=== PATIENT | male | born 1955 | race Caucasian/White ===

== ENCOUNTER 2017-04-20 09:12 | Emergency (ER) | payer BC, OTHER ==
[~2017-04-20] VITALS: Ht 177.8 cm; Wt 70.5 kg
[~2017-04-20 09:12] MED LIST: ABILIFY 10MG TA10 MG PO; ACIPHEX20 MG PO; AZITHROMYCIN500 MG PO; COZAAR 50MG50 MG/TAB PO; LIPITOR20 MG PO; PERCOCET 5/321 UDTAB PO; ULTRAM 50MG TAB50 MG PO; [UNRECOGNIZED DRUG - REMARK]
[2017-04-20 09:19] VITALS: BP 122/69; PULSE 55; TEMP 97.4
[2017-04-20 10:40] LABS: PROTHROMBIN TIME 11.1 SECONDS (9.7-12.8)
[2017-04-20 10:43] LABS: PARTIAL THROMBOPLASTIN TIME 35.2 SECONDS (26.0-37.0)
[2017-04-20 10:44] LABS: ADJUSTED CALCIUM 9.5 mg/dL (8.4-10.2); ALANINE AMINOTRANSFERASE 30 U/L (21-72); ALBUMIN 4.2 gm/dL (3.5-5.0); ALKALINE PHOSPHATASE 91 U/L (50-136); ANION GAP 10 mmol/L (7-16); BLOOD UREA NITROGEN 17 mg/dL (9-20); CALCIUM 9.7 mg/dL (8.4-10.2); CARBON DIOXIDE 28 mmol/L (22-30); CHLORIDE 103 mmol/L (98-107); CREATININE, serum 0.84 mg/dL (0.66-1.25); GLUCOSE 108 mg/dL (74-106); POTASSIUM 3.6 mmol/L (3.4-5.0); SODIUM 140 mmol/L (137-145); TOTAL PROTEIN 7.3 gm/dL (6.4-8.2)
[2017-04-20 10:59] LABS: TROPONIN-I < 0.012 ng/mL (0.000-0.034)
[2017-04-20 11:52] LABS: BASO # 0.1 (0.0-0.2); BASO % 0.5 % (0.0-2.0); EOS # 0.3 (0.0-0.7); EOS % 2.7 % (0-4.0); GRAN # 7.3 (1.4-6.5); HEMATOCRIT 48.3 % (42.0-52.0); HEMOGLOBIN 16.7 g/dl (13.5-18.0); LYMPH # 1.8 (1.2-3.4); LYMPH % 17.5 % (20.0-51.0); MEAN CELL VOLUME 90 fl (80.0-100.0); MEAN CORPUSCULAR HEMOGLOBIN 31 pg (27.0-31.0); MEAN CORPUSCULAR HGB CONC 35 g/dl (33.0-37.0); MEAN PLATELET VOLUME 9.3 fl (7.4-10.4); MONO # 0.7 (0.1-0.6); MONO % 6.9 % (1.7-9.3); PLATELET COUNT 349 K/mm3 (130-400); RED BLOOD COUNT 5.38 M/mm3 (4.20-5.60); REDCELL DISTRIBUTION WIDTH-CV 12.7 % (11.5-14.5); WHITE BLOOD COUNT 10.1 K/mm3 (4.8-10.8)
[2017-04-20] MEDS ORDERED: ULTRAM 50MG TAB50 MG PO (12:20)
== END 2017-04-20 13:30 | disposition home or self-care (01) ==
LOC: COL.ER 09:12
PROVIDERS: Emergency Medicine
DX: S22.20XA Unspecified fracture of sternum, initial encounter for closed fracture (principal); R55 Syncope and collapse; K21.9 Gastro-esophageal reflux disease without esophagitis; I10 Essential (primary) hypertension; F17.210 Nicotine dependence, cigarettes, uncomplicated; W18.39XA Other fall on same level, initial encounter
CPT/HCPCS: J2765; J7030

== ENCOUNTER → 2018-09-08 | Outpatient (CLI) | payer BC | LOC: COL.RAD 11:59 | DX: S09.90XA Unspecified injury of head, initial encounter (principal) ==

== ENCOUNTER → 2018-09-25 | Outpatient (CLI) | payer BC, OTHER | LOC: MHCPAIN 13:52 | DX: G89.29 Other chronic pain (principal); M79.2 Neuralgia and neuritis, unspecified | CPT/HCPCS: G0463 ==

== ENCOUNTER → 2018-10-02 | Outpatient (CLI) | payer BC, OTHER | LOC: MHCPAIN 09:45 | DX: G57.81 Other specified mononeuropathies of right lower limb (principal) | CPT/HCPCS: J1040 ==

== ENCOUNTER 2018-11-18 10:18 | Emergency (ER) | payer BC, OTHER ==
[~2018-11-18] VITALS: Ht 170.2 cm; Wt 63.6 kg
[2018-11-18 10:26] VITALS: TEMP 97.6
[2018-11-18 10:58] LABS: BASO # 0.1 (0.0-0.2); BASO % 0.6 % (0.0-2.0); EOS # 0.3 (0.0-0.7); EOS % 2.8 % (0-4.0); GRAN # 6.6 (1.4-6.5); GRAN % 69.9 % (42.2-75.2); HEMATOCRIT 49.1 % (42.0-52.0); HEMOGLOBIN 17.1 g/dl (13.5-18.0); LYMPH # 1.6 (1.2-3.4); LYMPH % 17.1 % (20.0-51.0); MEAN CELL VOLUME 90 fl (80.0-100.0); MEAN CORPUSCULAR HEMOGLOBIN 31 pg (27.0-31.0); MEAN CORPUSCULAR HGB CONC 35 g/dl (33.0-37.0); MEAN PLATELET VOLUME 8.8 fl (7.4-10.4); MONO # 0.9 (0.1-0.6); MONO % 9.3 % (1.7-9.3); PLATELET COUNT 317 K/mm3 (130-400); RED BLOOD COUNT 5.44 M/mm3 (4.20-5.60); REDCELL DISTRIBUTION WIDTH-CV 12.5 % (11.5-14.5)
[2018-11-18] MEDS ORDERED: ATARAX 25MG25 MG/TAB PO (11:02)
[2018-11-18] MEDS ORDERED: ATIVAN 1MG T1 MG/TAB PO (11:03)
[2018-11-18 11:08] LABS: PROTHROMBIN TIME 11.9 SECONDS (9.7-12.8)
[2018-11-18 11:30] LABS: ALANINE AMINOTRANSFERASE 26 U/L (21-72); ALBUMIN 4.2 gm/dL (3.5-5.0); ALKALINE PHOSPHATASE 90 U/L (50-136); ANION GAP 4 mmol/L (7-16); AST,SGOT 30 U/L (15-37); BILIRUBIN,TOTAL 0.6 mg/dL (0.0-1.0); BLOOD UREA NITROGEN 16 mg/dL (9-20); CALCIUM 9.3 mg/dL (8.4-10.2); CARBON DIOXIDE 30 mmol/L (22-30); CHLORIDE 102 mmol/L (98-107); CREATININE, serum 0.86 mg/dL (0.66-1.25); GLUCOSE 95 mg/dL (74-106); SODIUM 137 mmol/L (137-145); TOTAL PROTEIN 7.3 gm/dL (6.4-8.2)
[2018-11-18 11:31] LABS: C-REACTIVE PROTEIN < 0.5 mg/dL (0.0-0.9)
[2018-11-18 12:10] VITALS: BP 143/79; PULSE 64
== END 2018-11-18 12:30 | disposition short-term general hospital (02) ==
LOC: COL.ER 10:18
PROVIDERS: Family Medicine
DX: I63.9 Cerebral infarction, unspecified (principal); F31.9 Bipolar disorder, unspecified; K21.9 Gastro-esophageal reflux disease without esophagitis
CPT/HCPCS: J2997

== ENCOUNTER → 2018-11-20 | Outpatient (CLI) | payer BC, OTHER ==
[~2018-11-20] MED LIST changes: +ATARAX 25MG25 MG/TAB PO; +ATIVAN 1MG T1 MG/TAB PO
== END ==
LOC: MHCPAIN 09:50
DX: G89.29 Other chronic pain (principal); M79.2 Neuralgia and neuritis, unspecified
CPT/HCPCS: G0463

== ENCOUNTER → 2018-11-29 | Outpatient (CLI) | payer BC, OTHER | LOC: COL.RAD 11:02 | DX: M54.5 Low back pain (principal); R10.31 Right lower quadrant pain; M25.552 Pain in left hip; K59.00 Constipation, unspecified; M25.551 Pain in right hip ==

== ENCOUNTER → 2018-12-12 | Outpatient (CLI) | payer BC | LOC: COL.RAD 07:57 | DX: M51.36 Other intervertebral disc degeneration, lumbar region (principal); M48.061 Spinal stenosis, lumbar region without neurogenic claudication ==

== ENCOUNTER 2019-04-28 18:55 | Emergency (ER) | payer BC ==
[~2019-04-28] VITALS: Ht 170.2 cm; Wt 65.9 kg
[2019-04-28] MEDS ORDERED: STOOL SOFTENER100 M2 (19:13)
[2019-04-28] MEDS ORDERED: LUTEIN20 M1 (19:14)
[2019-04-28] MEDS ORDERED: DAZIDOX10 MG (19:14)
[2019-04-28] MEDS ORDERED: ZETIA 10MG TAB10 MG (19:14)
[2019-04-28] MEDS ORDERED: PRILOSEC 20MG20 MG PO (19:14)
[2019-04-28] MEDS ORDERED: BRILINTA90 MG PO (19:14)
[2019-04-28 19:15] VITALS: TEMP 98.6
[2019-04-28 20:02] LABS: BASO # 0.1 (0.0-0.2); BASO % 0.6 % (0.0-2.0); EOS # 0.4 (0.0-0.7); EOS % 3.7 % (0-4.0); GRAN # 6.3 (1.4-6.5); GRAN % 60.7 % (42.2-75.2); HEMATOCRIT 45.1 % (42.0-52.0); HEMOGLOBIN 15.7 g/dl (13.5-18.0); LYMPH # 2.4 (1.2-3.4); MEAN CELL VOLUME 89 fl (80.0-100.0); MEAN CORPUSCULAR HEMOGLOBIN 31 pg (27.0-31.0); MEAN CORPUSCULAR HGB CONC 35 g/dl (33.0-37.0); MEAN PLATELET VOLUME 9.1 fl (7.4-10.4); MONO # 1.2 (0.1-0.6); MONO % 11.6 % (1.7-9.3); PLATELET COUNT 286 K/mm3 (130-400); RED BLOOD COUNT 5.05 M/mm3 (4.20-5.60); REDCELL DISTRIBUTION WIDTH-CV 12.6 % (11.5-14.5)
[2019-04-28 20:13] LABS: ALANINE AMINOTRANSFERASE 26 U/L (21-72); ALBUMIN 4.6 gm/dL (3.5-5.0); ALKALINE PHOSPHATASE 74 U/L (50-136); ANION GAP 6 mmol/L (7-16); AST,SGOT 27 U/L (15-37); BILIRUBIN,TOTAL 0.4 mg/dL (0.0-1.0); BLOOD UREA NITROGEN 18 mg/dL (9-20); CALCIUM 9.8 mg/dL (8.4-10.2); CARBON DIOXIDE 28 mmol/L (22-30); CHLORIDE 103 mmol/L (98-107); CREATININE, serum 0.88 (0.66-1.25); GLUCOSE 101 mg/dL (74-106); LIPASE 75 U/L (23-300); POTASSIUM 4.8 mmol/L (3.4-5.0); SODIUM 137 mmol/L (137-145); TOTAL PROTEIN 7.4 gm/dL (6.4-8.2)
[2019-04-28 20:14] LABS: C-REACTIVE PROTEIN < 0.5 mg/dL (0.0-0.9)
[2019-04-28 21:00] LABS: COLLECTION METHOD CLEAN CATCH
[2019-04-28 21:11] LABS: MUCOUS Present /lpf; PH 6 (5-8); SQUAMOUS EPITHELIAL None Seen /hpf; URINE APPEARANCE Hazy; URINE BACTERIA None Seen /hpf; URINE BILIRUBIN Negative (NEGATIVE); URINE BLOOD Negative (NEGATIVE); URINE COLOR Yellow; URINE GLUCOSE Negative (NEGATIVE); URINE KETONE Negative (NEGATIVE); URINE LEUKOCYTE ESTERASE Negative (NEGATIVE); URINE NITRATE Negative (NEGATIVE); URINE PROTEIN(semi-quant) Negative (NEGATIVE); URINE RBC 0-2 /hpf; URINE UROBILINOGEN Negative (NEGATIVE)
[2019-04-28 21:59] VITALS: BP 130/71; PULSE 61
== END 2019-04-28 22:00 | disposition home or self-care (01) ==
LOC: COL.ER 18:55
PROVIDERS: Emergency Medicine
DX: R10.31 Right lower quadrant pain (principal); G89.29 Other chronic pain; Z86.73 Personal history of transient ischemic attack (TIA), and cerebral infarction without residual deficits
CPT/HCPCS: J2405; J3010; J7030

== ENCOUNTER 2019-04-30 10:55 | Emergency (ER) | payer BC, OTHER ==
[~2019-04-30] VITALS: Ht 170.2 cm; Wt 65.9 kg
[~2019-04-30 10:55] MED LIST changes: +BRILINTA90 MG PO; +DAZIDOX10 MG; +LUTEIN20 M1; +PRILOSEC 20MG20 MG PO; +STOOL SOFTENER100 M2; +ZETIA 10MG TAB10 MG
[2019-04-30 11:10] VITALS: TEMP 97.8
[2019-04-30] MEDS ORDERED: NICODERM C14 MG/PATC TOP (11:27)
[2019-04-30] MEDS ORDERED: CYMBALTA 30MG30 MG PO (11:29)
[2019-04-30 12:09] LABS: BASO # 0.1 (0.0-0.2); BASO % 0.8 % (0.0-2.0); EOS # 0.4 (0.0-0.7); EOS % 5.5 % (0-4.0); GRAN # 3.7 (1.4-6.5); GRAN % 52.8 % (42.2-75.2); HEMATOCRIT 44.2 % (42.0-52.0); HEMOGLOBIN 15.3 g/dl (13.5-18.0); LYMPH # 1.9 (1.2-3.4); LYMPH % 27.1 % (20.0-51.0); MEAN CELL VOLUME 90 fl (80.0-100.0); MEAN CORPUSCULAR HEMOGLOBIN 31 pg (27.0-31.0); MEAN CORPUSCULAR HGB CONC 35 g/dl (33.0-37.0); MONO # 0.9 (0.1-0.6); PLATELET COUNT 248 K/mm3 (130-400); RED BLOOD COUNT 4.93 M/mm3 (4.20-5.60); REDCELL DISTRIBUTION WIDTH-CV 12.4 % (11.5-14.5)
[2019-04-30 12:23] LABS: ALANINE AMINOTRANSFERASE 22 U/L (21-72); ALBUMIN 4.2 gm/dL (3.5-5.0); ALKALINE PHOSPHATASE 67 U/L (50-136); ANION GAP 6 mmol/L (7-16); AST,SGOT 27 U/L (15-37); BILIRUBIN,TOTAL 0.4 mg/dL (0.0-1.0); BLOOD UREA NITROGEN 21 mg/dL (9-20); CALCIUM 9.3 mg/dL (8.4-10.2); CARBON DIOXIDE 29 mmol/L (22-30); CHLORIDE 103 mmol/L (98-107); CREATININE, serum 0.82 (0.66-1.25); GLUCOSE 89 mg/dL (74-106); POTASSIUM 4.4 mmol/L (3.4-5.0); SODIUM 137 mmol/L (137-145); TOTAL PROTEIN 6.9 gm/dL (6.4-8.2)
[2019-04-30 12:28] LABS: C-REACTIVE PROTEIN < 0.5 mg/dL (0.0-0.9)
[2019-04-30 13:28] LABS: COLLECTION METHOD CLEAN CATCH
[2019-04-30 13:39] LABS: MUCOUS Present /lpf; PH 6 (5-8); SQUAMOUS EPITHELIAL 0-2 /hpf; URINE APPEARANCE Clear; URINE BACTERIA None Seen /hpf; URINE BILIRUBIN Negative (NEGATIVE); URINE BLOOD Negative (NEGATIVE); URINE COLOR Yellow; URINE GLUCOSE Negative (NEGATIVE); URINE KETONE Negative (NEGATIVE); URINE LEUKOCYTE ESTERASE Negative (NEGATIVE); URINE NITRATE Negative (NEGATIVE); URINE PROTEIN(semi-quant) Negative (NEGATIVE); URINE RBC 0-2 /hpf; URINE UROBILINOGEN Negative (NEGATIVE)
--- NOTE | 2019-04-30 13:51 | NUR ---
LOS responded to the ED for a social science analyst consult. Patient's nurse reports patient may have troubles getting [facility] services. The patient reports his PCP is Dr. Washburn and patient also receives care from the [facility] outpatient clinic in [place]. The patient reports the [facility] has set up [facility] and a nurse has done an inital assessment and will begin visiting the patient in his home. Patient does not know how often the nurse will visit. The patient reports his [employer] insurance will in July. The patient reports he applied for Medicaid approximately one or two months ago and was denied. The patient has had three bradley services in the past but does not have them anymore. Patient reports he as transportation to get to and from appointments; but reports sometimes utilizes [facility]. Patient reports he applied for SNAP benefits but was denied. SW provided a resource packet to the patient and reviewed it with him. Patient was grateful for the help. Patient reports he has used [facility] in the past. Patient indicated he was frustrated with some of the services in [place] due to that some social science analyst agencies only serve [place] residents. Patient did not have any further questions or concerns at this time. LOS collaborated with the patient's nurse with the above information.
[2019-04-30 14:20] VITALS: BP 134/72; PULSE 56
== END 2019-04-30 14:17 | disposition home or self-care (01) ==
LOC: COL.ER 10:55
PROVIDERS: Family Medicine
DX: R10.31 Right lower quadrant pain (principal); G89.29 Other chronic pain; F31.9 Bipolar disorder, unspecified; F17.210 Nicotine dependence, cigarettes, uncomplicated; Z86.73 Personal history of transient ischemic attack (TIA), and cerebral infarction without residual deficits
CPT/HCPCS: J1885; J2405; J3010; J7030; Q9967

== ENCOUNTER 2019-05-01 00:01 | Emergency (ER) | payer BC, OTHER ==
[~2019-05-01] VITALS: Ht 170.2 cm; Wt 65.9 kg
[~2019-05-01 00:01] MED LIST changes: +CYMBALTA 30MG30 MG PO; +NICODERM C14 MG/PATC TOP
[2019-05-01 00:04] VITALS: BP 146/96; TEMP 97.1
[2019-05-01 01:52] VITALS: PULSE 84
== END 2019-05-01 01:48 | disposition home or self-care (01) ==
LOC: COL.ER 00:01
DX: R10.30 Lower abdominal pain, unspecified (principal); G89.18 Other acute postprocedural pain; F17.210 Nicotine dependence, cigarettes, uncomplicated; K21.9 Gastro-esophageal reflux disease without esophagitis; F31.9 Bipolar disorder, unspecified
CPT/HCPCS: J1170

== ENCOUNTER 2019-05-03 13:07 | Emergency (ER) | payer BC, OTHER ==
[~2019-05-03] VITALS: Ht 170.2 cm; Wt 65.9 kg
[2019-05-03 13:08] VITALS: TEMP 96.8
[2019-05-03 17:00] VITALS: BP 114/80; PULSE 54
== END 2019-05-03 17:00 | disposition home or self-care (01) ==
LOC: COL.ER 13:07
DX: R10.30 Lower abdominal pain, unspecified (principal); G89.18 Other acute postprocedural pain; F12.90 Cannabis use, unspecified, uncomplicated; F17.210 Nicotine dependence, cigarettes, uncomplicated; F31.9 Bipolar disorder, unspecified; K21.9 Gastro-esophageal reflux disease without esophagitis; Z86.73 Personal history of transient ischemic attack (TIA), and cerebral infarction without residual deficits
CPT/HCPCS: J1170; J1630; J3360

== ENCOUNTER 2019-10-18 23:44 | Emergency (ER) | payer MEDICARE, BC ==
[~2019-10-18] VITALS: Ht 170.2 cm; Wt 68.2 kg
[2019-10-18 23:49] VITALS: TEMP 96.9
[2019-10-19 00:28] LABS: BASO # 0.1 (0.0-0.2); BASO % 0.7 % (0.0-2.0); EOS # 0.6 (0.0-0.7); EOS % 6.5 % (0-4.0); GRAN # 4.7 (1.4-6.5); GRAN % 53.3 % (42.2-75.2); HEMATOCRIT 44.2 % (42.0-52.0); HEMOGLOBIN 15.2 g/dl (13.5-18.0); LYMPH # 2.3 (1.2-3.4); LYMPH % 25.7 % (20.0-51.0); MEAN CELL VOLUME 88 fl (80.0-100.0); MEAN CORPUSCULAR HEMOGLOBIN 30 pg (27.0-31.0); MEAN CORPUSCULAR HGB CONC 34 g/dl (33.0-37.0); MEAN PLATELET VOLUME 9.1 fl (7.4-10.4); MONO # 1.2 (0.1-0.6); MONO % 13.5 % (1.7-9.3); PLATELET COUNT 252 K/mm3 (130-400); RED BLOOD COUNT 5.03 M/mm3 (4.20-5.60); REDCELL DISTRIBUTION WIDTH-CV 12.6 % (11.5-14.5)
[2019-10-19 02:23] VITALS: BP 113/75; PULSE 69
== END 2019-10-19 02:23 | disposition home or self-care (01) ==
LOC: COL.ER 23:44
PROVIDERS: Emergency Medicine
DX: T85.840A Pain due to nervous system prosthetic devices, implants and grafts, initial encounter (principal); G89.18 Other acute postprocedural pain; G89.29 Other chronic pain; H91.3 Deaf nonspeaking, not elsewhere classified; Z79.891 Long term (current) use of opiate analgesic

== ENCOUNTER 2019-10-27 11:32 | Emergency (ER) | payer MEDICARE, BC ==
[~2019-10-27] VITALS: Ht 172.7 cm; Wt 68.2 kg
[2019-10-27 11:40] VITALS: TEMP 97.6
[2019-10-27] MEDS ORDERED: CEPHALEXIN500 M1 PO (11:52)
[2019-10-27] MEDS ORDERED: VALIUM 2MG T2 MG/TAB PO (15:08)
[2019-10-27 15:15] VITALS: BP 133/78; PULSE 53
== END 2019-10-27 15:15 | disposition home or self-care (01) ==
LOC: COL.ER 11:32
DX: M54.9 Dorsalgia, unspecified (principal)

== ENCOUNTER 2019-11-06 08:57 | Emergency (ER) | payer MEDICARE, BC ==
[~2019-11-06] VITALS: Ht 170.2 cm; Wt 68.2 kg
[~2019-11-06 08:57] MED LIST changes: +CEPHALEXIN500 M1 PO; +VALIUM 2MG T2 MG/TAB PO
[2019-11-06 09:02] VITALS: TEMP 98.2
[2019-11-06] MEDS ORDERED: BRILINTA60 MG PO (09:18)
[2019-11-06] MEDS ORDERED: CLEOCIN HCL300 MG PO (09:43)
[2019-11-06 09:44] VITALS: BP 135/84; PULSE 83
== END 2019-11-06 09:51 | disposition home or self-care (01) ==
LOC: COL.ER 08:57
DX: K02.9 Dental caries, unspecified (principal); I10 Essential (primary) hypertension; F17.210 Nicotine dependence, cigarettes, uncomplicated; Z86.73 Personal history of transient ischemic attack (TIA), and cerebral infarction without residual deficits

== ENCOUNTER 2020-01-11 10:22 | Emergency (ER) | payer MEDICARE, BC ==
[~2020-01-11] VITALS: Ht 170.2 cm; Wt 68.2 kg
[~2020-01-11 10:22] MED LIST changes: +BRILINTA60 MG PO; +CLEOCIN HCL300 MG PO
[2020-01-11 10:25] VITALS: PULSE 91
[2020-01-11] MEDS ORDERED: ZOFRAN ODT4 MG PO (12:57)
[2020-01-11 13:00] LABS: COLLECTION METHOD CLEAN CATCH
[2020-01-11 13:10] LABS: MUCOUS Present /lpf; PH 5 (5-8); SQUAMOUS EPITHELIAL None Seen /hpf; URINE APPEARANCE Hazy; URINE BACTERIA None Seen /hpf; URINE BILIRUBIN Negative (NEGATIVE); URINE BLOOD Negative (NEGATIVE); URINE COLOR Yellow; URINE GLUCOSE Negative (NEGATIVE); URINE KETONE Negative (NEGATIVE); URINE LEUKOCYTE ESTERASE Negative (NEGATIVE); URINE NITRATE Negative (NEGATIVE); URINE PROTEIN(semi-quant) Negative (NEGATIVE); URINE RBC 0-2 /hpf; URINE UROBILINOGEN Negative (NEGATIVE)
[2020-01-11 13:26] VITALS: BP 145/75; TEMP 98.2
[2020-01-11] MEDS ORDERED: NORCO 325 MG-51 TAB PO (21:08)
== END 2020-01-11 13:22 | disposition home or self-care (01) ==
LOC: COL.ER 10:22
PROVIDERS: Physician Assistant
DX: R10.31 Right lower quadrant pain (principal); F17.210 Nicotine dependence, cigarettes, uncomplicated
CPT/HCPCS: J1885

== ENCOUNTER 2020-01-11 20:54 | Emergency (ER) | payer MEDICARE, BC ==
[~2020-01-11] VITALS: Ht 170.2 cm; Wt 68.2 kg
[~2020-01-11 20:54] MED LIST changes: +ZOFRAN ODT4 MG PO
[2020-01-11 21:04] VITALS: BP 158/84; TEMP 98.3
[2020-01-11] MEDS ORDERED: NORCO 325 MG-51 TAB PO (21:08)
[2020-01-11 22:50] VITALS: PULSE 82
== END 2020-01-11 22:50 | disposition home or self-care (01) ==
LOC: COL.ER 20:54
DX: R45.1 Restlessness and agitation (principal); T40.2X5A Adverse effect of other opioids, initial encounter; T45.0X5A Adverse effect of antiallergic and antiemetic drugs, initial encounter; T48.1X5A Adverse effect of skeletal muscle relaxants [neuromuscular blocking agents], initial encounter; I25.10 Atherosclerotic heart disease of native coronary artery without angina pectoris; I25.2 Old myocardial infarction; F17.210 Nicotine dependence, cigarettes, uncomplicated
CPT/HCPCS: J1200; J2060

== ENCOUNTER 2020-01-13 08:50 | Emergency (ER) | payer MEDICARE, BC ==
[~2020-01-13] VITALS: Ht 172.7 cm; Wt 68.2 kg
[~2020-01-13 08:50] MED LIST changes: +NORCO 325 MG-51 TAB PO
[2020-01-13 08:58] VITALS: BP 134/72; PULSE 62; TEMP 97.9
== END 2020-01-13 09:53 | disposition home or self-care (01) ==
LOC: COL.ER 08:50
DX: T50.995A Adverse effect of other drugs, medicaments and biological substances, initial encounter (principal); I25.2 Old myocardial infarction; K21.9 Gastro-esophageal reflux disease without esophagitis; F17.210 Nicotine dependence, cigarettes, uncomplicated; Z86.73 Personal history of transient ischemic attack (TIA), and cerebral infarction without residual deficits
CPT/HCPCS: J1200; J2060

== ENCOUNTER 2020-01-25 20:18 | Emergency (ER) | payer MEDICARE, BC ==
[~2020-01-25] VITALS: Ht 152.4 cm; Wt 67.3 kg
[2020-01-25 20:32] VITALS: TEMP 98.7
[2020-01-25 21:26] LABS: HEMATOCRIT 51.9 % (42.0-52.0); HEMOGLOBIN 17.7 g/dl (13.5-18.0); MEAN CELL VOLUME 90 fl (80.0-100.0); MEAN CORPUSCULAR HEMOGLOBIN 31 pg (27.0-31.0); MEAN CORPUSCULAR HGB CONC 34 g/dl (33.0-37.0); MEAN PLATELET VOLUME 8.9 fl (7.4-10.4); PLATELET COUNT 301 K/mm3 (130-400); RED BLOOD COUNT 5.79 M/mm3 (4.20-5.60); REDCELL DISTRIBUTION WIDTH-CV 13.2 % (11.5-14.5)
[2020-01-25 21:30] LABS: PROTHROMBIN TIME 11.3 SECONDS (9.7-12.8)
[2020-01-25 21:33] LABS: PARTIAL THROMBOPLASTIN TIME 35.9 SECONDS (26.0-37.0)
[2020-01-25 21:38] LABS: ALANINE AMINOTRANSFERASE 29 U/L (4-49); ALBUMIN 4.9 gm/dL (3.5-5.0); ALKALINE PHOSPHATASE 100 U/L (50-136); ANION GAP 9 mmol/L (7-16); AST,SGOT 38 U/L (15-37); BLOOD UREA NITROGEN 18 mg/dL (9-20); CALCIUM 9.8 mg/dL (8.4-10.2); CARBON DIOXIDE 28 mmol/L (22-30); CHLORIDE 98 mmol/L (98-107); CREATININE, serum 0.92 (0.66-1.25); GLUCOSE 116 mg/dL (74-106); POTASSIUM 4.3 mmol/L (3.4-5.0); SODIUM 135 mmol/L (137-145); TOTAL PROTEIN 8.4 gm/dL (6.4-8.2)
[2020-01-25 21:51] LABS: TROPONIN-I < 0.012 ng/mL (0.000-0.035)
[2020-01-25 21:54] LABS: BAND 1 % (0-10); LYMPHOCYTE 8 % (20.0-51.0); NEUTROPHILS 90 % (42.0-75.2); PLATELET ESTIMATE NORMAL (NORMAL)
[2020-01-25 22:58] LABS: HEMATOCRIT 48.1 % (42.0-52.0); HEMOGLOBIN 16.4 g/dl (13.5-18.0); MEAN CELL VOLUME 89 fl (80.0-100.0); MEAN CORPUSCULAR HEMOGLOBIN 30 pg (27.0-31.0); MEAN CORPUSCULAR HGB CONC 34 g/dl (33.0-37.0); MEAN PLATELET VOLUME 9.1 fl (7.4-10.4); PLATELET COUNT 264 K/mm3 (130-400); REDCELL DISTRIBUTION WIDTH-CV 13.2 % (11.5-14.5)
[2020-01-25 23:17] LABS: BAND 2 % (0-10); EOSINOPHIL 2 % (0-4); LYMPHOCYTE 4 % (20.0-51.0); NEUTROPHILS 90 % (42.0-75.2); PLATELET ESTIMATE NORMAL (NORMAL)
[2020-01-25 23:18] VITALS: BP 141/70; PULSE 90
[2020-01-28 08:22] LABS: PATHOLOGY DIFF REVIEW OK
== END 2020-01-25 23:20 | disposition home or self-care (01) ==
LOC: COL.ER 20:18
PROVIDERS: Family Medicine
DX: G89.18 Other acute postprocedural pain (principal); R68.84 Jaw pain; D72.829 Elevated white blood cell count, unspecified
CPT/HCPCS: J2550; J3010; J7030

== ENCOUNTER 2020-03-11 18:16 | Observation (INO) | payer MEDICARE, BC ==
[~2020-03-11] VITALS: Ht 170.2 cm; Wt 63.0 kg
[~2020-03-11 18:16] MED LIST changes: -DAZIDOX10 MG; +DAZIDOX10 MG PO; -LUTEIN20 M1; +LUTEIN20 M1 PO; -STOOL SOFTENER100 M2; +STOOL SOFTENER100 M2 PO; -ZETIA 10MG TAB10 MG; +ZETIA 10MG TAB10 MG PO
[2020-03-11 18:33] LABS: BASO # 0.1 (0.0-0.2); BASO % 0.5 % (0.0-2.0); EOS # 0.2 (0.0-0.7); EOS % 2.2 % (0-4.0); GRAN # 6.8 (1.4-6.5); GRAN % 68.6 % (42.2-75.2); HEMATOCRIT 42.2 % (42.0-52.0); HEMOGLOBIN 14.6 g/dl (13.5-18.0); LYMPH # 1.8 (1.2-3.4); LYMPH % 18.2 % (20.0-51.0); MEAN CELL VOLUME 91 fl (80.0-100.0); MEAN CORPUSCULAR HEMOGLOBIN 32 pg (27.0-31.0); MEAN CORPUSCULAR HGB CONC 35 g/dl (33.0-37.0); MEAN PLATELET VOLUME 9.2 fl (7.4-10.4); MONO % 10.1 % (1.7-9.3); PLATELET COUNT 257 K/mm3 (130-400); RED BLOOD COUNT 4.63 M/mm3 (4.20-5.60)
[2020-03-11 18:45] LABS: ALANINE AMINOTRANSFERASE 16 U/L (4-49); ALBUMIN 3.9 gm/dL (3.5-5.0); ALKALINE PHOSPHATASE 63 U/L (50-136); ANION GAP 5 mmol/L (7-16); AST,SGOT 28 U/L (15-37); BILIRUBIN,TOTAL 0.5 mg/dL (0.0-1.0); BLOOD UREA NITROGEN 28 mg/dL (9-20); CALCIUM 8.9 mg/dL (8.4-10.2); CARBON DIOXIDE 23 mmol/L (22-30); CHLORIDE 109 mmol/L (98-107); GLUCOSE 86 mg/dL (74-106); POTASSIUM 3.6 mmol/L (3.4-5.0); SODIUM 137 mmol/L (137-145); TOTAL PROTEIN 6.6 gm/dL (6.4-8.2)
[2020-03-11 18:46] LABS: C-REACTIVE PROTEIN < 0.5 mg/dL (0.0-0.9)
[2020-03-11 18:54] LABS: ERYTHROCYTE SEDIMENTATION RATE 1 mm/hr (0-30)
[2020-03-11 18:55] LABS: TROPONIN-I < 0.012 ng/mL (0.000-0.035)
[2020-03-11] MEDS ORDERED: B-121000 MCG PO (20:23)
[2020-03-11] MEDS ORDERED: ZETIA 10MG TAB10 MG PO (20:23)
[2020-03-11 20:30] LABS: COLLECTION METHOD CLEAN CATCH
[2020-03-11 20:36] LABS: MUCOUS Present /lpf; PH 6 (5-8); SQUAMOUS EPITHELIAL 0-2 /hpf; URINE APPEARANCE Clear; URINE BACTERIA None Seen /hpf; URINE BILIRUBIN Negative (NEGATIVE); URINE BLOOD Negative (NEGATIVE); URINE COLOR Yellow; URINE GLUCOSE Negative (NEGATIVE); URINE KETONE Trace (NEGATIVE); URINE LEUKOCYTE ESTERASE Negative (NEGATIVE); URINE NITRATE Negative (NEGATIVE); URINE PROTEIN(semi-quant) Negative (NEGATIVE); URINE RBC 0-2 /hpf; URINE UROBILINOGEN Negative (NEGATIVE)
--- NOTE | 2020-03-11 20:45 | NUR ---
Called Dr. Chacon to make aware patient is on the floor. Daytime home meds have not been resumed.
[2020-03-11] MEDS ORDERED: FOLIC ACID 11 MG/TA1 PO (21:05)
[2020-03-11] MEDS ORDERED: MAG-OX 400400 MG/TAB PO (21:08)
[2020-03-11 22:08] VITALS: BP 110/61; PULSE 58; TEMP 98
[2020-03-12 00:19] VITALS: BP 112/49; PULSE 53; TEMP 98.3
--- NOTE | 2020-03-12 03:03 | NUR ---
Patient arrived on the floor from ED at 2044. Patient is alert and oriented. Patient is hard of hearing. Patient stated he has a heart monitor in his chest, but doesn't know what it is but that it is there because he has a whole in his heart. Patient also has a groin stimulator in his left lower back for back pain. Patient has history of bipolar and states he has severe PTSD. Patient has requested staff turn on lights in order to wake him up and not to touch him until he is awake. Patient has concerns about paying his bills and getting his air conditioner fixed. Patient IV is in his left AC fluids running at this time.
[2020-03-12 04:33] VITALS: BP 108/58; PULSE 50; TEMP 97.9
--- NOTE | 2020-03-12 08:00 | NUR ---
Pt assessment complete. Pt is yelling and agitated, reports he has been awake since 5am and has still has not received his medications. Pt has flight of thoughts and speech, reporting a headache, would like to talk to his case management social worker from [employer] as he is planning to go stay in a hotel etc. MILAGROS Celaya and Dr. Miramontes notified. Discussed POC with patient who states he has a ride coming for him at 0830. IVF infusing. Will await MD to come see patient.
[2020-03-12 08:20] VITALS: BP 135/67; PULSE 50; TEMP 97.4
[2020-03-12 08:59] LABS: TRICYCLIC ANTIDEPRESS URINE NEGATIVE
--- NOTE | 2020-03-12 09:25 | NUR ---
Dr. Miramontes in to see patient along with social work. Pt still insistent on going home. Dr. Miramontes feels patient is not at harm to self or to others. Pt signed AMA paperwork with understanding of refusal of treatment and services and possible outcomes. IV dc'd to [facility], patient walked out of facility to ride.
--- NOTE | 2020-03-12 09:30 | NUR ---
The PA notified LOS that the patient is agitated and wanting to leave AMA. She states that the patient has [employer] and he is stating that someone was helping him to get into a hotel. ED notes that the patient has not had air conditioning for a couple of days. LOS attempted to contact the patient's insurance case manager, Tri Castillo, at [employer]. SW left her a voicemail. LOS then met with the patient. The hospitalist and RN were also in room. The patient was yelling and stating that he has a ride here and is wanting to leave. LOS contacted APS worker, aKrin. Karin reports that the patient is a client of hers and that she had assisted the patient yesterday. She states that she had gotten him groceries and was going to be getting him a hotel today. She states that check-in would be around [id number]. The patient was then walking out with his RN. LOS spoke to the patient with Karin on the phone. The patient reports that he does not want to wait around here until [phone] and wants Karin to contact him at home on his home phone. The patient continued yelling during this time. Karin plans to follow up with the patient. No additional needs at this time.
== END 2020-03-12 09:28 | disposition left against medical advice (07) ==
LOC: COL.ER 18:16 → MEDICAL 19:31
PROVIDERS: Emergency Medicine; Physician Assistant; ADMIT Hospitalist
DX: R41.82 Altered mental status, unspecified (principal); F43.10 Post-traumatic stress disorder, unspecified; K21.9 Gastro-esophageal reflux disease without esophagitis; E78.5 Hyperlipidemia, unspecified; I25.10 Atherosclerotic heart disease of native coronary artery without angina pectoris; G89.29 Other chronic pain; F17.210 Nicotine dependence, cigarettes, uncomplicated; Z88.0 Allergy status to penicillin; Z88.6 Allergy status to analgesic agent; Z88.8 Allergy status to other drugs, medicaments and biological substances; Z91.030 Bee allergy status; Z86.73 Personal history of transient ischemic attack (TIA), and cerebral infarction without residual deficits
CPT/HCPCS: G0378; J7030

== ENCOUNTER → 2020-04-03 | Outpatient (CLI) | payer MEDICARE, BC ==
[~2020-04-03] MED LIST changes: +B-121000 MCG PO; +FOLIC ACID 11 MG/TA1 PO; +MAG-OX 400400 MG/TAB PO
== END ==
LOC: COL.RAD 15:45
DX: M25.532 Pain in left wrist (principal)

== ENCOUNTER 2020-07-03 13:45 | Outpatient (RCR) | payer OTHER ==
[2020-07-08] MEDS ORDERED: BRILINTA90 MG PO (09:49)
[2020-07-08] MEDS ORDERED: TUSS PO (10:45)
[2020-07-08] MEDS ORDERED: PREDNISONE20 MG PO (10:45)
[2020-07-08] MEDS ORDERED: IPRATROPIUM BROM3 M1 IH (11:13)
[2020-07-08] MEDS ORDERED: NEB MC (11:13)
[2020-07-14] MEDS ORDERED: IPRATROPIUM BROM3 M1 IH (15:14)
[2020-07-14] MEDS ORDERED: LEVAQUIN 5500 MG/TA1 PO (15:14)
[2020-07-19] MEDS ORDERED: PERCOCET 325 MG1 TA2 PO (18:31)
[2020-07-19] MEDS ORDERED: ROXICODONE 55 MG/TAB PO (19:14)
[2020-08-04] MEDS ORDERED: PREDNISONE20 MG PO (17:52)
[2020-08-10] MEDS ORDERED: ULTRAM 50MG TAB50 MG PO (00:52)
[2020-08-10] MEDS ORDERED: LIORESAL 1010 MG/TAB PO (00:54)
[2020-08-12] MEDS ORDERED: PERCOCET 325 MG1 TA2 PO (12:53)
[2020-08-30] MEDS ORDERED: FLEXERIL 1010 MG/TAB PO (03:08)
== END 2020-09-01 | disposition home or self-care (01) ==
LOC: WSST
DX: R13.12 Dysphagia, oropharyngeal phase (principal)

== ENCOUNTER 2020-07-08 09:18 | Emergency (ER) | payer MEDICARE ==
[~2020-07-08] VITALS: Ht 170.2 cm; Wt 63.6 kg
[2020-07-08 09:22] VITALS: TEMP 98.3
[2020-07-08] MEDS ORDERED: BRILINTA90 MG PO (09:49)
[2020-07-08 09:51] LABS: HEMOGLOBIN 16.3 g/dl (13.5-18.0); MEAN CELL VOLUME 91 fl (80.0-100.0); MEAN CORPUSCULAR HEMOGLOBIN 31 pg (27.0-31.0); MEAN CORPUSCULAR HGB CONC 34 g/dl (33.0-37.0); MEAN PLATELET VOLUME 9.3 fl (7.4-10.4); PLATELET COUNT 277 K/mm3 (130-400); REDCELL DISTRIBUTION WIDTH-CV 12.6 % (11.5-14.5)
[2020-07-08 10:00] LABS: ALBUMIN 4.5 gm/dL (3.5-5.0); BILIRUBIN,TOTAL 0.6 mg/dL (0.0-1.0); CALCIUM 9.6 mg/dL (8.4-10.2); CREATININE, serum 0.83 (0.66-1.25); TOTAL PROTEIN 7.4 gm/dL (6.4-8.2)
[2020-07-08 10:13] LABS: BAND 3 % (0-10); EOSINOPHIL 7 % (0-4); LYMPHOCYTE 14 % (20.0-51.0); NEUTROPHILS 62 % (42.0-75.2); PLATELET ESTIMATE NORMAL (NORMAL)
[2020-07-08] MEDS ORDERED: TUSS PO (10:45)
[2020-07-08] MEDS ORDERED: PREDNISONE20 MG PO (10:45)
[2020-07-08 11:12] VITALS: BP 121/70; PULSE 76
[2020-07-08] MEDS ORDERED: IPRATROPIUM BROM3 M1 IH (11:13)
[2020-07-08] MEDS ORDERED: NEB MC (11:13)
== END 2020-07-08 11:12 | disposition home or self-care (01) ==
LOC: COL.ER 09:18
PROVIDERS: Nurse Practitioner Primary Care
DX: J44.1 Chronic obstructive pulmonary disease with (acute) exacerbation (principal); Z20.828 Contact with and (suspected) exposure to other viral communicable diseases; I25.2 Old myocardial infarction; I50.9 Heart failure, unspecified; F17.210 Nicotine dependence, cigarettes, uncomplicated; Z86.73 Personal history of transient ischemic attack (TIA), and cerebral infarction without residual deficits; Z88.0 Allergy status to penicillin; Z88.6 Allergy status to analgesic agent; Z88.8 Allergy status to other drugs, medicaments and biological substances; Z79.02 Long term (current) use of antithrombotics/antiplatelets
CPT/HCPCS: J2930

== ENCOUNTER 2020-07-17 19:47 | Emergency (ER) | payer MEDICARE ==
[~2020-07-17] VITALS: Ht 170.2 cm; Wt 63.6 kg
[~2020-07-17 19:47] MED LIST changes: +IPRATROPIUM BROM3 M1 IH; +LEVAQUIN 5500 MG/TA1 PO; +NEB MC; +PREDNISONE20 MG PO; +TUSS PO
[2020-07-17 19:48] VITALS: TEMP 98.7
[2020-07-17 20:36] LABS: BASO % 0.2 % (0.0-2.0); EOS # 0.1 (0.0-0.7); EOS % 0.6 % (0-4.0); GRAN # 11.1 (1.4-6.5); HEMATOCRIT 48.4 % (42.0-52.0); HEMOGLOBIN 16.4 g/dl (13.5-18.0); LYMPH # 1.4 (1.2-3.4); LYMPH % 9.7 % (20.0-51.0); MEAN CELL VOLUME 90 fl (80.0-100.0); MEAN CORPUSCULAR HEMOGLOBIN 31 pg (27.0-31.0); MEAN CORPUSCULAR HGB CONC 34 g/dl (33.0-37.0); MEAN PLATELET VOLUME 8.9 fl (7.4-10.4); MONO # 1.4 (0.1-0.6); MONO % 9.6 % (1.7-9.3); PLATELET COUNT 349 K/mm3 (130-400); RED BLOOD COUNT 5.36 M/mm3 (4.20-5.60); REDCELL DISTRIBUTION WIDTH-CV 12.5 % (11.5-14.5)
[2020-07-17 20:40] LABS: ALANINE AMINOTRANSFERASE 41 U/L (4-49); ALBUMIN 4.4 gm/dL (3.5-5.0); ALKALINE PHOSPHATASE 91 U/L (50-136); ANION GAP 10 mmol/L (7-16); AST,SGOT 29 U/L (15-37); BILIRUBIN,TOTAL 0.6 mg/dL (0.0-1.0); BLOOD UREA NITROGEN 28 mg/dL (9-20); CALCIUM 9.6 mg/dL (8.4-10.2); CARBON DIOXIDE 27 mmol/L (22-30); CHLORIDE 102 mmol/L (98-107); CREATININE, serum 0.92 (0.66-1.25); GLUCOSE 133 mg/dL (74-106); POTASSIUM 3.8 mmol/L (3.4-5.0); SODIUM 139 mmol/L (137-145)
[2020-07-17 20:53] LABS: TROPONIN-I < 0.012 ng/mL (0.000-0.035)
[2020-07-17 23:38] VITALS: BP 154/88; PULSE 88
== END 2020-07-17 23:38 | disposition home or self-care (01) ==
LOC: COL.ER 19:47
PROVIDERS: Family Medicine
DX: R07.89 Other chest pain (principal); Z88.0 Allergy status to penicillin; Z88.8 Allergy status to other drugs, medicaments and biological substances; Z88.6 Allergy status to analgesic agent; Z79.52 Long term (current) use of systemic steroids; Z79.02 Long term (current) use of antithrombotics/antiplatelets
CPT/HCPCS: J7030

== ENCOUNTER 2020-07-19 14:28 | Emergency (ER) | payer MEDICARE ==
[~2020-07-19] VITALS: Ht 170.2 cm; Wt 63.6 kg
[2020-07-19 14:45] VITALS: TEMP 98.1
[2020-07-19] MEDS ORDERED: PERCOCET 325 MG1 TA2 PO (18:31)
[2020-07-19 18:54] VITALS: BP 132/73; PULSE 85
[2020-07-19] MEDS ORDERED: ROXICODONE 55 MG/TAB PO (19:14)
== END 2020-07-19 19:01 | disposition home or self-care (01) ==
LOC: COL.ER 14:28
DX: G89.29 Other chronic pain (principal); M54.5 Low back pain; F17.210 Nicotine dependence, cigarettes, uncomplicated; Z86.73 Personal history of transient ischemic attack (TIA), and cerebral infarction without residual deficits; Z98.890 Other specified postprocedural states; Z88.0 Allergy status to penicillin; Z88.6 Allergy status to analgesic agent; Z88.5 Allergy status to narcotic agent

== ENCOUNTER 2020-08-09 23:29 | Emergency (ER) | payer OTHER ==
[~2020-08-09] VITALS: Ht 170.2 cm; Wt 63.6 kg
[~2020-08-09 23:29] MED LIST changes: +PERCOCET 325 MG1 TA2 PO; +ROXICODONE 55 MG/TAB PO
[2020-08-09 23:34] VITALS: TEMP 97.9
[2020-08-10] MEDS ORDERED: ULTRAM 50MG TAB50 MG PO (00:52)
[2020-08-10] MEDS ORDERED: LIORESAL 1010 MG/TAB PO (00:54)
[2020-08-10 01:15] VITALS: BP 144/74; PULSE 49
--- NOTE | 2020-08-11 10:08 | NUR ---
The patient has [employer]. Base Cloth Inspector faxed ED notes to the [facility].
== END 2020-08-10 01:15 | disposition home or self-care (01) ==
LOC: COL.ER 23:29
DX: R07.81 Pleurodynia (principal); R07.89 Other chest pain; Z88.0 Allergy status to penicillin; Z88.8 Allergy status to other drugs, medicaments and biological substances; Z88.6 Allergy status to analgesic agent; Z79.52 Long term (current) use of systemic steroids; Z79.02 Long term (current) use of antithrombotics/antiplatelets
CPT/HCPCS: J2360

== ENCOUNTER 2020-08-12 12:17 | Emergency (ER) | payer MEDICARE, BC ==
[~2020-08-12] VITALS: Ht 170.2 cm; Wt 63.6 kg
[~2020-08-12 12:17] MED LIST changes: +LIORESAL 1010 MG/TAB PO
[2020-08-12 12:28] VITALS: TEMP 97.9
[2020-08-12] MEDS ORDERED: PERCOCET 325 MG1 TA2 PO (12:53)
[2020-08-12 13:36] VITALS: BP 133/80; PULSE 63
== END 2020-08-12 13:36 | disposition home or self-care (01) ==
LOC: COL.ER 12:17
DX: S22.31XA Fracture of one rib, right side, initial encounter for closed fracture (principal); I25.10 Atherosclerotic heart disease of native coronary artery without angina pectoris; F17.200 Nicotine dependence, unspecified, uncomplicated; Z88.0 Allergy status to penicillin; Z88.5 Allergy status to narcotic agent; Z88.6 Allergy status to analgesic agent; Z88.8 Allergy status to other drugs, medicaments and biological substances; X58.XXXA Exposure to other specified factors, initial encounter

== ENCOUNTER 2020-08-13 12:45 | Emergency (ER) | payer MEDICARE, BC ==
[~2020-08-13] VITALS: Ht 170.2 cm; Wt 63.6 kg
[2020-08-13 13:07] VITALS: TEMP 97.4
[2020-08-13 14:28] VITALS: BP 130/76; PULSE 70
== END 2020-08-13 14:28 | disposition home or self-care (01) ==
LOC: COL.ER 12:45
DX: R14.0 Abdominal distension (gaseous) (principal); I25.2 Old myocardial infarction; K21.9 Gastro-esophageal reflux disease without esophagitis; F17.210 Nicotine dependence, cigarettes, uncomplicated; Z88.0 Allergy status to penicillin; Z88.8 Allergy status to other drugs, medicaments and biological substances; Z88.6 Allergy status to analgesic agent; Z79.52 Long term (current) use of systemic steroids; Z79.02 Long term (current) use of antithrombotics/antiplatelets

== ENCOUNTER 2020-08-30 01:06 | Emergency (ER) | payer MEDICARE, BC ==
[~2020-08-30] VITALS: Ht 170.2 cm; Wt 63.6 kg
[2020-08-30 01:08] VITALS: TEMP 98.4
[2020-08-30] MEDS ORDERED: FLEXERIL 1010 MG/TAB PO (03:08)
[2020-08-30 03:48] VITALS: BP 107/66; PULSE 78
== END 2020-08-30 03:53 | disposition home or self-care (01) ==
LOC: COL.ER 01:06
DX: R07.89 Other chest pain (principal); J44.9 Chronic obstructive pulmonary disease, unspecified; F17.200 Nicotine dependence, unspecified, uncomplicated; Z88.0 Allergy status to penicillin; Z88.5 Allergy status to narcotic agent; Z88.6 Allergy status to analgesic agent; Z88.8 Allergy status to other drugs, medicaments and biological substances; Z79.51 Long term (current) use of inhaled steroids
CPT/HCPCS: J1885; J2060

== ENCOUNTER 2020-09-23 01:55 | Inpatient (IN) | payer MEDICARE, BC, OTHER ==
[~2020-09-23] VITALS: Ht 170.2 cm; Wt 59.9 kg
[~2020-09-23 01:55] MED LIST changes: +FLEXERIL 1010 MG/TAB PO
[2020-09-23 02:48] LABS: COLLECTION METHOD CLEAN CATCH
[2020-09-23 02:56] LABS: PH 7 (5-8); SQUAMOUS EPITHELIAL None Seen /hpf; URINE APPEARANCE Clear; URINE BACTERIA None Seen /hpf; URINE BILIRUBIN Negative (NEGATIVE); URINE BLOOD Negative (NEGATIVE); URINE COLOR Straw; URINE GLUCOSE Negative (NEGATIVE); URINE KETONE Negative (NEGATIVE); URINE LEUKOCYTE ESTERASE Negative (NEGATIVE); URINE NITRATE Negative (NEGATIVE); URINE PROTEIN(semi-quant) Negative (NEGATIVE); URINE RBC 0-2 /hpf; URINE UROBILINOGEN Negative (NEGATIVE); URINE WBC 0-2 /hpf
[2020-09-23 03:13] LABS: TRICYCLIC ANTIDEPRESS URINE NEGATIVE
[2020-09-23 03:43] LABS: BASO # 0.1 (0.0-0.2); BASO % 0.4 % (0.0-2.0); EOS # 0.2 (0.0-0.7); EOS % 1.3 % (0-4.0); GRAN # 13.2 (1.4-6.5); GRAN % 78.5 % (42.2-75.2); HEMATOCRIT 48.8 % (42.0-52.0); HEMOGLOBIN 16.6 g/dl (13.5-18.0); LYMPH # 1.8 (1.2-3.4); LYMPH % 10.5 % (20.0-51.0); MEAN CELL VOLUME 91 fl (80.0-100.0); MEAN CORPUSCULAR HEMOGLOBIN 31 pg (27.0-31.0); MEAN CORPUSCULAR HGB CONC 34 g/dl (33.0-37.0); MEAN PLATELET VOLUME 8.4 fl (7.4-10.4); MONO # 1.5 (0.1-0.6); MONO % 8.7 % (1.7-9.3); PLATELET COUNT 293 K/mm3 (130-400); RED BLOOD COUNT 5.37 M/mm3 (4.20-5.60); REDCELL DISTRIBUTION WIDTH-CV 13.2 % (11.5-14.5)
[2020-09-23 03:55] LABS: ALANINE AMINOTRANSFERASE 29 U/L (4-49); ALBUMIN 4.1 gm/dL (3.5-5.0); ALCOHOL(ethanol),MEDICAL 130 mg/dL; ALKALINE PHOSPHATASE 91 U/L (50-136); ANION GAP 11 mmol/L (7-16); AST,SGOT 32 U/L (15-37); BILIRUBIN,TOTAL 0.5 mg/dL (0.0-1.0); BLOOD UREA NITROGEN 19 mg/dL (9-20); CALCIUM 8.9 mg/dL (8.4-10.2); CARBON DIOXIDE 26 mmol/L (22-30); CHLORIDE 104 mmol/L (98-107); CREATININE, serum 0.78 (0.66-1.25); GLUCOSE 106 mg/dL (74-106); LIPASE 158 U/L (23-300); POTASSIUM 3.5 mmol/L (3.4-5.0); SODIUM 142 mmol/L (137-145); TOTAL PROTEIN 6.9 gm/dL (6.4-8.2)
[2020-09-23 03:59] LABS: ACETAMINOPHEN < 10 ug/mL (10-30); SALICYLATE < 1.0 mg/dL
[2020-09-23 04:15] LABS: TROPONIN-I < 0.012 ng/mL (0.000-0.035)
[2020-09-23] MEDS ORDERED: VOLTAREN GEL 1%1 TU TP (05:46)
[2020-09-23] MEDS ORDERED: VALIUM 2MG T2 MG/TAB PO ×2 (05:46)
[2020-09-23 06:31] LABS: BASO # 0.1 (0.0-0.2); BASO % 0.4 % (0.0-2.0); EOS # 0.1 (0.0-0.7); EOS % 0.7 % (0-4.0); GRAN % 79.9 % (42.2-75.2); HEMATOCRIT 48.4 % (42.0-52.0); HEMOGLOBIN 16.6 g/dl (13.5-18.0); LYMPH # 1.7 (1.2-3.4); LYMPH % 10.4 % (20.0-51.0); MEAN CELL VOLUME 91 fl (80.0-100.0); MEAN CORPUSCULAR HEMOGLOBIN 31 pg (27.0-31.0); MEAN CORPUSCULAR HGB CONC 34 g/dl (33.0-37.0); MEAN PLATELET VOLUME 8.5 fl (7.4-10.4); MONO # 1.3 (0.1-0.6); PLATELET COUNT 305 K/mm3 (130-400); RED BLOOD COUNT 5.34 M/mm3 (4.20-5.60); REDCELL DISTRIBUTION WIDTH-CV 13.3 % (11.5-14.5)
[2020-09-23 16:14] VITALS: BP 120/74; PULSE 120; TEMP 101.7
[2020-09-23 18:03] VITALS: BP 118/73; PULSE 125; TEMP 99.6
--- NOTE | 2020-09-23 18:07 | NUR ---
PT REFUSING LABS
--- NOTE | 2020-09-23 19:58 | NUR ---
Pt upt o room 353, assisted to recliner, refused to lay in bed, c/o "too much pain". Pt observed sitting in recliner, occasionally rocking back and forth complaining of pain to rt sd/rib/groin. Pt speech is garbled, difficult to understand w/ occasional loud outbursts. Pt unable to fully describe pain or give much explanation to situation. Pt unable to review medications, allergies, or answer many questions on assessment appropriately. Pt received tylenol PRN for pain, dropped one pill and stated he was allergic to aspirin. Informed pt it was tylenol, pt then stated he was allergic to tylenol, stated it made him "itch to ". This nurse notified MILAGROS Zuniga, tylenol dc'd. Benadryl ordered, administered per oct. pt doesn't appear to be having reaction at this time. Pt scoring 12 on CIWA scale, ativan administered per oct. Pt received pain medication as well. Pt has LAC IV that flushes well w/o issue. No edema noted. pt HR tachy, LS cta. pulses palpable. PA notified of pt pain and current situation, no new orders aside from pain medication at this time. Report given to MARKIE Murry. Pt instructed to use call light for assistance.
--- NOTE | 2020-09-23 20:00 | NUR ---
Received report from Dalila. During shift change rounds, seen patient yelling because of pain. He is sitting in the recliner. He was hugging the pillow placed mainly on the right side. Dalila RN gave him pain medicine and Ativan. Started patient with fluids LR at 100ml/hr. He is on room air. He is tachycardic. Chair alarm on.
[2020-09-23 20:03] VITALS: BP 117/66; PULSE 110; TEMP 98.3
[2020-09-23 21:56] VITALS: BP 119/62; PULSE 100; TEMP 99.1
--- NOTE | 2020-09-23 22:00 | NUR ---
Patient last urinated was in the ER. Tried to do bladder scan but he won't lie down. Tried doing it while he was sitting and I was able to get 125ml only in the scan. Encouraged him to urinate in the urinal. He did stand and tried but he did not urinate. Will try to scan him again later.
--- NOTE | 2020-09-23 23:30 | NUR ---
Patient did urinate. Assisted him in standing and using the urinal. He was screaming for pain when he was standing. Will give him his pain meds.
[2020-09-24] VITALS (9 sets, daily range): BP systolic 121–138; BP diastolic 66–105; PULSE 96–116; TEMP 98.3–102.3
--- NOTE | 2020-09-24 01:30 | NUR ---
Informed Ibeth LINARES via phone call regarding lactic acid results of the patient. She ordered bolus of 1L LR.
--- NOTE | 2020-09-24 02:40 | NUR ---
Patient in severe pain. He was yelling and have a hand guarding on his right side. He score 12 on CIWA. Morphine and Ativan given. After few minutes patient did calm down. Encouraged him to try to urinate. He was able to stand and use the urinal but he said he doesn't feel like he needs to urinate.
--- NOTE | 2020-09-24 06:27 | NUR ---
Informed patient to try to urinate again but he said it's too painful to stand. Morphine and Ativan given. After few minutes, encouraged patient to stand to try to urinate but he did not go. Did a bladder scan and was able to get 293ml.
--- NOTE | 2020-09-24 07:15 | NUR ---
Report with MARKIE Murry. Pt sitting in chair with eyes closed, resp even and unlabored. IVF's infusing per orders without s/s of complications. Call light in reach. Chair alarm on.
[2020-09-24 07:33] LABS: HEMATOCRIT 44.3 % (42.0-52.0); HEMOGLOBIN 15.2 g/dl (13.5-18.0); MEAN CELL VOLUME 91 fl (80.0-100.0); MEAN CORPUSCULAR HEMOGLOBIN 31 pg (27.0-31.0); MEAN CORPUSCULAR HGB CONC 34 g/dl (33.0-37.0); PLATELET COUNT 243 K/mm3 (130-400); RED BLOOD COUNT 4.85 M/mm3 (4.20-5.60); REDCELL DISTRIBUTION WIDTH-CV 13.6 % (11.5-14.5)
[2020-09-24 07:42] LABS: CALCIUM 8.7 mg/dL (8.4-10.2); CREATININE, serum 0.78 (0.66-1.25); POTASSIUM 3.5 mmol/L (3.4-5.0)
[2020-09-24 08:46] LABS: BAND 14 % (0-10); LYMPHOCYTE 4 % (20.0-51.0); NEUTROPHILS 70 % (42.0-75.2); PLATELET ESTIMATE NORMAL (NORMAL)
[2020-09-24 11:20] LABS: ARTERIAL BLD GAS O2 SATURATION 93.3 % (92-100); ARTERIAL BLD GAS TCO2 CT 25.2; ARTERIAL BLOOD GAS BASE EXCESS 1.1 (-2-2); ARTERIAL BLOOD GAS HCO3 24.2 meq/L (22-26); ARTERIAL BLOOD GAS PCO2 34.3 mmHg (35-45); ARTERIAL BLOOD GAS PO2 60.1 mmHg (80-100); ARTERIAL BLOOD GAS pH 7.47 (7.35-7.45)
--- NOTE | 2020-09-24 12:43 | NUR ---
Pt having another severe pain episode, leaning forward in chair, moaning and groaning, shaking all over. Tele reports high rates in the 130s. Provider notified. Order for 1 mg of Morphine now. Call back when pt going for imaging.
--- NOTE | 2020-09-24 13:47 | NUR ---
Pt's temp increased to 102.3 degrees F. Provider notified. Orders discussed.
--- NOTE | 2020-09-24 16:16 | NUR ---
Coordinator Of Library Services met with the patient to complete intake. The patient was not answering questions. LOS contacted the [facility] and they had DPOA-HC on file and faxed it to this SW. It designates Beni Wilson #[phone]. The copy was placed in the patient's chart. LOS contacted the patient's DPOA-HC Beni to complete intake. The patient lives alone in [facility]. Beni believes the patient has a cane and is independent. The patient's PCP is at the [facility]. The patient also goes to the [facility] for some care but Beni was not sure which team. The patient receives medications from [facility] in [place]. The plan is for the patient to return home at discharge. Beni can provide transportation if it is after 5:00 pm.
--- NOTE | 2020-09-24 18:05 | NUR ---
After having conversation with pt's brother, provider called and notified of new information from recent medical history.
--- NOTE | 2020-09-24 18:57 | NUR ---
Report given to MARKIE Garcia. Pt attempts to get up out of bed to void, uses urinal with assistance in bed, reports pain to right side still there but improved and not causing the tension all over like before. PRN pain medication administered and sched abx started. Pt able to relax to void now unlike earlier in the day. No further needs reported. Call light in reach. Bed alarm on.
[2020-09-25] VITALS (9 sets, daily range): BP systolic 118–148; BP diastolic 60–77; PULSE 98–128; TEMP 98–100.2
[2020-09-25 06:58] LABS: HEMATOCRIT 41.7 % (42.0-52.0); HEMOGLOBIN 13.9 g/dl (13.5-18.0); MEAN CELL VOLUME 93 fl (80.0-100.0); MEAN CORPUSCULAR HEMOGLOBIN 31 pg (27.0-31.0); MEAN CORPUSCULAR HGB CONC 33 g/dl (33.0-37.0); PLATELET COUNT 209 K/mm3 (130-400); RED BLOOD COUNT 4.49 M/mm3 (4.20-5.60); REDCELL DISTRIBUTION WIDTH-CV 13.6 % (11.5-14.5)
[2020-09-25 07:10] LABS: ALBUMIN 3.2 gm/dL (3.5-5.0); BILIRUBIN,TOTAL 1.4 mg/dL (0.0-1.0); CALCIUM 8.7 mg/dL (8.4-10.2); CREATININE, serum 0.94 (0.66-1.25); POTASSIUM 3.6 mmol/L (3.4-5.0); TOTAL PROTEIN 6.1 gm/dL (6.4-8.2)
[2020-09-25 08:07] LABS: LYMPHOCYTE 6 % (20.0-51.0); NEUTROPHILS 88 % (42.0-75.2)
[2020-09-25 08:08] LABS: PLATELET ESTIMATE NORMAL (NORMAL)
--- NOTE | 2020-09-25 10:11 | NUR ---
Assessment complete. PAtient sitting up in bed on entry. States he feels a little better but is reating pain at an 8 at this time. Patient endured a coughing fit which caused some mild SOB but patient recivered quickly. Patient took medications well. Tremors are remarkable at this time, difficulty holding things like pills and drinks. He is alert and oriented at this time. IV site CD&I, flushed well. No other needs at this time. Call light is in reach. Fall precautions in place.
--- NOTE | 2020-09-25 17:45 | NUR ---
Patient did well today, PRN pain medication given a few times but patient was not demanding them. PRN ativan for detox protocol was restarted and this seemed to help patient relax and get some rest. He was more calm. At this time patient vital were assessed and patient was only satting 89%, O2 was bumped to 7L and pt only increased to 90%. RT was called for an assessment. RT was able to get pt on 6 L at 93%. During this episode patient did not seem extremely anxious or uncomfortable. Protocol dose of ativan was administered as well. PAtient now sitting up eating dinner, denies needs at this time. Will continue to monitor. Call light is in reach.
[2020-09-25 23:54] LABS: ARTERIAL BLD GAS O2 SATURATION 92.1 % (92-100); ARTERIAL BLD GAS TCO2 CT 24.2; ARTERIAL BLOOD GAS BASE EXCESS -0.4 (-2-2); ARTERIAL BLOOD GAS HCO3 23.1 meq/L (22-26); ARTERIAL BLOOD GAS PCO2 34.6 mmHg (35-45); ARTERIAL BLOOD GAS PO2 56.5 mmHg (80-100); ARTERIAL BLOOD GAS pH 7.44 (7.35-7.45)
[2020-09-26] VITALS (921 sets, daily range): BP systolic 92–130; BP diastolic 56–95; PULSE 69–106; TEMP 98.5–99.8; O2SAT 69–99
--- NOTE | 2020-09-26 00:38 | NUR ---
Around 2300, patient getting up out of bed. This nurse intervened. Patient did not have on oxygen, and had increased confusion. Believed he was in war combat and his heart monitor was a bomb. Put oxygen on patient. SPO2 was 83% on oxygen at 7 L/min via NC. Increased oxygen to 15 L/min via NC, and increased to 90%. Called RT. Called and spoke to Sarita, new order for ABG. RT obtained ABG. Put on high flow nasal canula with bubbler. SPO2 currently 93%. Continues to be anxious, agitated, and takes off oxygen. Staff having to stay with patient for safety. Patient scored 9 on midnight detox protocol. Called and clarified with Sarita if it was ok to have Ativan per protocol and she said it was. Given 2 mg IV Ativan at approximately 2356. Sarita and Deandra came to see patient, and gave orders to transfer to ICU. housekeeping supervisor hotel aware and to transfer to ICU 5. Primary care nurse notified.
--- NOTE | 2020-09-26 00:55 | NUR ---
Received report from MARKIE Garcia, to transfer patient to ICU for IMCU status in room 5
--- NOTE | 2020-09-26 01:26 | NUR ---
Patient arrived to unit via wheelchair. VS 106hr, 30rr on 15L HFNL, 96% O2 128/74, 99 degrees. Rates pain at 8.5 out of 10 and pain is localized on top of head. Assessment completed at this time. Will resume care for patient at this time.
--- NOTE | 2020-09-26 02:25 | NUR ---
Received call from [facility] Dr. Vicente and gave update on patient status. No new orders at this time.
--- NOTE | 2020-09-26 04:45 | NUR ---
Spoke with patients brother, Laurent, who gave privacy code and gave update on patient status. Laurent was appreciative of patient care and stated all of his questions were answered. Stated he would call back throughout the day to check in on brother.
[2020-09-26 05:34] LABS: HEMATOCRIT 40.6 % (42.0-52.0); HEMOGLOBIN 13.5 g/dl (13.5-18.0); MEAN CELL VOLUME 95 fl (80.0-100.0); MEAN CORPUSCULAR HEMOGLOBIN 32 pg (27.0-31.0); MEAN CORPUSCULAR HGB CONC 33 g/dl (33.0-37.0); MEAN PLATELET VOLUME 9.3 fl (7.4-10.4); PLATELET COUNT 220 K/mm3 (130-400); RED BLOOD COUNT 4.28 M/mm3 (4.20-5.60); REDCELL DISTRIBUTION WIDTH-CV 13.4 % (11.5-14.5)
[2020-09-26 05:42] LABS: INR 1.2 (0.8-3.0); PROTHROMBIN TIME 13.1 SECONDS (9.7-12.8)
[2020-09-26 05:48] LABS: CALCIUM 8.4 mg/dL (8.4-10.2); POTASSIUM 3.5 mmol/L (3.4-5.0)
[2020-09-26 05:55] LABS: BASOPHIL 1 % (0-2); EOSINOPHIL 1 % (0-4); LYMPHOCYTE 12 % (20.0-51.0); NEUTROPHILS 83 % (42.0-75.2)
[2020-09-26 05:56] LABS: HYPOCHROMIA 2+; PLATELET ESTIMATE NORMAL (NORMAL)
--- NOTE | 2020-09-26 07:00 | NUR ---
PT RESTING IN BED WITH 15L HIGH FLOW NC ON. BED ALARM ACTIVE. WILL CONTINUE TO MONITOR.
--- NOTE | 2020-09-26 09:39 | NUR ---
PT'S DPOA MARINA UPDATED.
--- NOTE | 2020-09-26 10:01 | NUR ---
Initial visit; Patient thanked Control Clerk Repairs for looking in on him, listening and offering God's blessings.
--- NOTE | 2020-09-26 12:30 | NUR ---
SW update, sw notified that DPOA reports not wanting to be DPOA.SW attempted call to named DPOA Beni Wilson at . SW awaiting call back to confirm choice. Secondary DPOA identified via DPOA chart [facility] POA and Living will name Porfirio KatieTosin . LOS has not made contact yet. Awaiting Primary contact before using secondary. Will revisit in 60 minutes.
--- NOTE | 2020-09-26 12:45 | NUR ---
SW update: Received call from Beni Wilson. Beni reports that he would like to have the patient's brother Guillermo involved in his care. . Educated the DPOA of status if he chooses that he does not want to do it. Educated NOK- Secondary DPOA Porfirio Wilson- Patients' Mother, and then the patients' brother. Beni confirmed that he will continue to make decisions and inform the patient's brother of his care. Status remain the same and we will follow the DPOA paperwork. Patient does not have any children, only mother and brother.
--- NOTE | 2020-09-26 18:00 | NUR ---
PT RETURNED FROM OR WITH RIGHT CHEST TUBE. CT AT -15 WALL SUCTION. PT ON 1L HIGH FLOW OXYGEN. BEDALARM ACTIVE. VSS. WILL CONTINUE TO MONTIOR.
--- NOTE | 2020-09-26 19:30 | NUR ---
Received report from Danielle. ADEN. All medications verified and all questions answered. Will resume care at this time.
--- NOTE | 2020-09-26 22:30 | NUR ---
Nurse inserted [address] Cain Catheter. Urine return noted. 350mls of urine collected in urometer. Darm isaac in color and sediment noted. Sterile technique utilized for insertion. Catheter clean with chlorhexidine wipes after insertion. Patient tolerated well.
[2020-09-27] VITALS (721 sets, daily range): BP systolic 91–159; BP diastolic 58–87; PULSE 57–104; TEMP 97.7–99.4; O2SAT 70–100
--- NOTE | 2020-09-27 04:50 | NUR ---
Spoke with patients brother, Laurent, and gave update on patients status throughout the night. Brother stated he would call back later.
[2020-09-27 05:00] LABS: BASO # 0.1 (0.0-0.2); BASO % 0.5 % (0.0-2.0); EOS # 0.3 (0.0-0.7); GRAN # 7.9 (1.4-6.5); LYMPH % 8.9 % (20.0-51.0); MEAN CELL VOLUME 93 fl (80.0-100.0); MEAN CORPUSCULAR HGB CONC 34 g/dl (33.0-37.0); MEAN PLATELET VOLUME 9.3 fl (7.4-10.4); MONO # 1.4 (0.1-0.6); MONO % 13.1 % (1.7-9.3); PLATELET COUNT 227 K/mm3 (130-400); RED BLOOD COUNT 3.58 M/mm3 (4.20-5.60); REDCELL DISTRIBUTION WIDTH-CV 13.1 % (11.5-14.5)
[2020-09-27 05:03] LABS: HEMATOCRIT 33.2 % (42.0-52.0); MEAN CORPUSCULAR HEMOGLOBIN 31 pg (27.0-31.0)
[2020-09-27 05:05] LABS: HEMOGLOBIN 11.2 g/dl (13.5-18.0)
[2020-09-27 05:11] LABS: CREATININE, serum 0.84 (0.66-1.25); MAGNESIUM 2.3 mg/dL (1.6-2.3); POTASSIUM 3.7 mmol/L (3.4-5.0)
--- NOTE | 2020-09-27 08:00 | NUR ---
Shift assessment complete at this time. Plan of care reviewed at bedside with patient et family. additional time taken to address any other needs or concerns. Vitals stable at this time. Weaning Precedex gtt as Pt is calm et cooperative. Reports mild-moderate R flank pain and will administer PRN analgesics, see eMAR for documentation. Bed in low position, call light within reach, will continue to monitor.
--- NOTE | 2020-09-27 19:49 | NUR ---
Received report from MARKIE Eldridge. All medications verified and all questions answered. Patient resting in bed watching TV. VSS. Will resume care at this time.
[2020-09-28] VITALS (437 sets, daily range): BP systolic 121–157; BP diastolic 65–90; PULSE 92–110; TEMP 97.7–99.2; O2SAT 68–100
[2020-09-28 04:41] LABS: HEMOGLOBIN 12.6 g/dl (13.5-18.0); MEAN CELL VOLUME 90 fl (80.0-100.0); MEAN CORPUSCULAR HEMOGLOBIN 31 pg (27.0-31.0); MEAN CORPUSCULAR HGB CONC 35 g/dl (33.0-37.0); PLATELET COUNT 314 K/mm3 (130-400); RED BLOOD COUNT 4.04 M/mm3 (4.20-5.60); REDCELL DISTRIBUTION WIDTH-CV 12.7 % (11.5-14.5)
[2020-09-28 04:47] LABS: HEMATOCRIT 36.5 % (42.0-52.0)
[2020-09-28 04:52] LABS: CALCIUM 8.1 mg/dL (8.4-10.2); CREATININE, serum 0.79 (0.66-1.25); MAGNESIUM 2.1 mg/dL (1.6-2.3); POTASSIUM 3.3 mmol/L (3.4-5.0)
--- NOTE | 2020-09-28 05:00 | NUR ---
Notified [employer], CONTACT REPRESENTATIVE of patient potassium level of 3.3. Received orderes for potassium replacement. Patient placement on potassium replacement protocol.
[2020-09-28 05:30] LABS: BAND 2 % (0-10); LYMPHOCYTE 9 % (20.0-51.0); NEUTROPHILS 77 % (42.0-75.2); PLATELET ESTIMATE NORMAL (NORMAL)
--- NOTE | 2020-09-28 07:00 | NUR ---
Purple port will not flush or give any blood return on right upper arm PICC. The red port will flush and give blood return. No other s/sx of PICC line problems at this time.
--- NOTE | 2020-09-28 07:30 | NUR ---
Report received from Zain ADEN.
--- NOTE | 2020-09-28 12:15 | NUR ---
Personal belongings provided to pt including cell phone, cell phone transcripter, phone book (second one) and glasses with case.
--- NOTE | 2020-09-28 14:55 | NUR ---
Report called to Mona ADEN on surgical.
--- NOTE | 2020-09-28 15:30 | NUR ---
Pt assisted to surgical floor rm 326 via wheelchair. Chest tube removed from suction and output recorded as well as greenberg catheter cleaned and emptied. Pt is a X1 assist with slow upright mobility. Pleasant and cooperative. Personal belongings moved with pt. No IVF infusing at this time. Notified new nurse that psych has not been notified. Pt refused oral care prior to moving to surgical floor. Expressed to this nurse desire to take a shower.
--- NOTE | 2020-09-28 15:58 | NUR ---
Patient received from ICU to room 326. Patient awake & alert, transferred to bed from wheelchair. Slow to move but steady on his feet. Picc to king Arreguin. Patient Vss on O2. Patient does have dyspnea, breathing labored. He reports continual shortness of breath. Chest tube to right chest. Dressing intact. 20cmhg suction. Bubbling noted in canister. Scds. Patient making phone calls. Will monitor.
--- NOTE | 2020-09-28 19:45 | NUR ---
Patient sitting up at edge of bed. He was up to the bathroom & had bm. Dyspnea with exertion. Patient has been at bit restless. Ativan per orders for detox protocol. Picc to Rue with antibiotics. Chest tube bubbling noted. Cain to JULIA. Pain medication per orders. He did well with dinner. He has had dry coughing. Daxe report to MARKIE Blood
--- NOTE | 2020-09-29 00:33 | NUR ---
PT HAS BEEN VERY RESTLESS. FREQ. TRIES TO MESS WITH HIS BHAKTA CATHETER. OCCAS. NON-PRODUCTIVE COUGH. VERY FORGETFUL. FREQ. TRIES TO GET UP WITHOUT CALLING OR ASSISTANCE. PT USUALLY SCORES HIGH ENOUGH ON DETOX SCALE TO GET ATIVAN. WHICH HAS NOT CALMED HIM MUCH.
[2020-09-29 02:59] VITALS: BP 133/78; PULSE 91; TEMP 98.1
[2020-09-29 06:04] LABS: HEMOGLOBIN 11.7 g/dl (13.5-18.0); MEAN CELL VOLUME 91 fl (80.0-100.0); MEAN CORPUSCULAR HEMOGLOBIN 31 pg (27.0-31.0); MEAN CORPUSCULAR HGB CONC 34 g/dl (33.0-37.0); MEAN PLATELET VOLUME 8.9 fl (7.4-10.4); PLATELET COUNT 363 K/mm3 (130-400); RED BLOOD COUNT 3.79 M/mm3 (4.20-5.60); REDCELL DISTRIBUTION WIDTH-CV 12.9 % (11.5-14.5)
[2020-09-29 06:07] LABS: HEMATOCRIT 34.6 % (42.0-52.0)
[2020-09-29 06:16] LABS: CALCIUM 8.5 mg/dL (8.4-10.2); CREATININE, serum 0.7 (0.66-1.25); MAGNESIUM 2.3 mg/dL (1.6-2.3); POTASSIUM 3.3 mmol/L (3.4-5.0)
[2020-09-29 07:34] LABS: BAND 1 % (0-10); BASOPHIL 1 % (0-2); EOSINOPHIL 5 % (0-4); LYMPHOCYTE 8 % (20.0-51.0); NEUTROPHILS 71 % (42.0-75.2); PLATELET ESTIMATE NORMAL (NORMAL)
[2020-09-29 07:35] VITALS: BP 150/79; PULSE 102; TEMP 97.8
--- NOTE | 2020-09-29 08:11 | NUR ---
Patient sitting up at edge of bed. Awake & alert. Dyspnea with exertion. Vss on O2. He is restless. Complaints about his greenberg cath. He is reminded to leave greenberg alone. Output with sediment. Picc to RUE, K+ replacement per orders. Breakfast ordered, he denies nausea. Took am medications with applesauce. Chest tube bubbling noted in canister. high fall risk protocol. Etox detox scale. Ativan per orders
[2020-09-29 12:00] VITALS: BP 167/76; PULSE 104; TEMP 98
--- NOTE | 2020-09-29 13:00 | NUR ---
Patient continues to be wide awake. Spoke to about patient, supplies at bedside per his request for when he rounds this evening. He okayed to give lovenox. & verifed greenberg may be removed. Patient tolerated greenberg removal & very thankful to have it DC. Hospitalsit rounded. Will monitor.
--- NOTE | 2020-09-29 14:11 | NUR ---
PT/OT are recommending post acute rehab. Taxonomist met with the patient to discuss Medicare.gov's list SNFs in the [facility]. The patient's first choice is [facility] and second choice is [facility]. Referrals faxed and facilities notified.
[2020-09-29 15:37] VITALS: BP 123/69; PULSE 95; TEMP 97.6
--- NOTE | 2020-09-29 15:45 | NUR ---
rounded. Patient Vss on O2. Medications per detox scale. Pain continues to be elevated roxicodone per orders.
--- NOTE | 2020-09-29 17:12 | NUR ---
Patient finally resting, sleeping soundly in bed.
--- NOTE | 2020-09-29 19:47 | NUR ---
Patient sitting at edge of bed. rounded & made adjustments to chest tube & new dressing applied. Patient tolerated well, but medication given for pain. He tolerated dinner. He did sleep for an hour & then woke up and reported having a bad nightmare. Iv antibioitcs to picc. Jessica int BUBBA.
--- NOTE | 2020-09-29 20:00 | NUR ---
Report recieved, assumed care for shift commander. Assessment complete. VS stable. A&Ox3. Denies nausea. Short of breath at rest. O2@2L/NC. Chest tube-underwater [id number] output. Denies pain at this time. Sitting on side of bed talking to family on phone. Plan of care discussed for this shift to include HS meds/calling for pain medications as needed/antibiotics. Verbalizes understanding/denies questions or concerns. Call light in reach. Will monitor.
[2020-09-29 20:30] VITALS: BP 132/80; PULSE 102; TEMP 99.5
--- NOTE | 2020-09-29 21:30 | NUR ---
Called with c/o pain to right chest-rating pain 8/10 on pain scale-described as constant throbbing. Oxycodone given per dr calhoun.
[2020-09-30 00:08] VITALS: BP 145/78; PULSE 99; TEMP 97.5
--- NOTE | 2020-09-30 03:00 | NUR ---
Called with c/o pain to right chest rating pain 8/10 on pain scale-described as constant throbbing. Percocet given per dr unique.
[2020-09-30 05:43] VITALS: BP 139/73; PULSE 96; TEMP 98.1
--- NOTE | 2020-09-30 05:52 | NUR ---
Rested off and on this shift. Pain controlled with alternating percocet and oxycodone. Received ativan x1 for detox protocol. Chest tube to right chest with 50mls reddish output for this shift. Denies current needs. Call light in reach. Will monitor.
[2020-09-30 06:41] LABS: BASO # 0.1 (0.0-0.2); BASO % 0.5 % (0.0-2.0); EOS # 0.6 (0.0-0.7); EOS % 5.3 % (0-4.0); GRAN # 8.9 (1.4-6.5); GRAN % 73.5 % (42.2-75.2); LYMPH % 8.6 % (20.0-51.0); MEAN CELL VOLUME 93 fl (80.0-100.0); MEAN CORPUSCULAR HEMOGLOBIN 31 pg (27.0-31.0); MEAN CORPUSCULAR HGB CONC 33 g/dl (33.0-37.0); MONO # 1.3 (0.1-0.6); REDCELL DISTRIBUTION WIDTH-CV 13.4 % (11.5-14.5)
[2020-09-30 06:43] LABS: HEMATOCRIT 36.1 % (42.0-52.0)
[2020-09-30 06:46] LABS: PLATELET COUNT 483 K/mm3 (130-400)
[2020-09-30 06:54] LABS: CALCIUM 8.7 mg/dL (8.4-10.2); CREATININE, serum 0.63 (0.66-1.25); POTASSIUM 3.6 mmol/L (3.4-5.0)
[2020-09-30 07:20] VITALS: BP 127/69; PULSE 101; TEMP 98.2
--- NOTE | 2020-09-30 08:44 | NUR ---
[facility] has declined the patient for post acute rehab.
[2020-09-30 11:29] VITALS: BP 134/74; PULSE 83; TEMP 98.8
[2020-09-30 15:35] VITALS: BP 133/67; PULSE 109; TEMP 99.1
--- NOTE | 2020-09-30 16:33 | NUR ---
Multiple Cut Off Saw Operator faxed referrals to [facility], [facility], [facility], and [facility]. [facility] has declined. SW faxed updates to [facility].
[2020-09-30 19:36] VITALS: BP 151/69; PULSE 107; TEMP 98.3
--- NOTE | 2020-09-30 20:00 | NUR ---
Report received, assumed care for retail shift leader. Assessment complete. VS stable. A&Ox3-very anxious. Very upset that his friends brought up a bunch of bills for utilities that he cant pay right now. Cursing and getting up out of bed. Did speak to MILAGROS Stein and new orders received for ativan. Given at this time. Chest tube to water seal-reddish output noted. Rating pain 8/10 to right chest-described as constant burning with intermittent sharpness-percocet given per dr order. Also coughing quite a bit-robitussin PRN given. Plan of care discussed for this shift to include HS meds/pain meds/NPO at SD. Verbalizes understanding/denies questions/concerns. Call light in reach/bed alarm on. Will monitor.
[2020-10-01] VITALS (11 sets, daily range): BP systolic 110–138; BP diastolic 52–71; PULSE 74–89; TEMP 97.4–98.4
--- NOTE | 2020-10-01 00:30 | NUR ---
Standing up in room trying to remove chest tube. Has removed entire dressing including xerofoam gauze strip. States "I look like dustin so im sawing this tube off." Assisted back to bed and redressed chest tube. Sutures were still intact. Applied Xerofoam around tube, drain sponges and 4x4s. Covered with foam tape. Ativan given per dr order. Call light in reach/bed alarm on. Will monitor.
--- NOTE | 2020-10-01 01:30 | NUR ---
Chest tube with serosanguineous drainage noted.
--- NOTE | 2020-10-01 05:44 | NUR ---
Sitting on side of bed this AM. No c/o pain/discomfort. States "im just ready to get this damn thing fixed." Chest tube with 75mls of reddish output this shift. Denies needs. Call light in reach. Will monitor.
[2020-10-01 06:34] LABS: BASO # 0.1 (0.0-0.2); BASO % 0.6 % (0.0-2.0); EOS # 0.6 (0.0-0.7); EOS % 6.1 % (0-4.0); GRAN # 7.2 (1.4-6.5); GRAN % 70.3 % (42.2-75.2); HEMOGLOBIN 12.1 g/dl (13.5-18.0); LYMPH # 0.9 (1.2-3.4); LYMPH % 9.2 % (20.0-51.0); MEAN CELL VOLUME 93 fl (80.0-100.0); MEAN CORPUSCULAR HEMOGLOBIN 31 pg (27.0-31.0); MEAN CORPUSCULAR HGB CONC 33 g/dl (33.0-37.0); MEAN PLATELET VOLUME 8.6 fl (7.4-10.4); MONO # 1.3 (0.1-0.6); MONO % 12.4 % (1.7-9.3); PLATELET COUNT 559 K/mm3 (130-400); RED BLOOD COUNT 3.93 M/mm3 (4.20-5.60); REDCELL DISTRIBUTION WIDTH-CV 13.3 % (11.5-14.5)
[2020-10-01 06:37] LABS: HEMATOCRIT 36.6 % (42.0-52.0)
[2020-10-01 06:44] LABS: CALCIUM 8.9 mg/dL (8.4-10.2); CREATININE, serum 0.74 (0.66-1.25)
--- NOTE | 2020-10-01 09:30 | NUR ---
Patient alert and oriented, answers questions appropriately. See assessment. Chest tube in place to right chest wall, dressing CDI. Chest tube patent, draining small amount of serosanguinous drainage. Oxygen at 2l/nc. No c/o at this time.
--- NOTE | 2020-10-01 09:57 | NUR ---
[facility] has declined the patient for post acute rehab.
--- NOTE | 2020-10-01 15:29 | NUR ---
Continuous Still Operator faxed updates. Facilities are still reviewing.
--- NOTE | 2020-10-01 21:54 | NUR ---
PT IN BED WITH HOB AT 90 DEGREE ANGLE, A/O 4, HAS PAIN RATED 10/10 GAVE PRN PAIN MEDICATION. PT HAS CHEST TUBES TO WATERSEAL SUCTION, WORKING WELL. NO FURTHER NEEDS AT THIS TIME, CALL LIGHT WITHIN REACH AND BED ALARM ON.
[2020-10-02 03:59] VITALS: BP 106/53; PULSE 81; TEMP 98.4
--- NOTE | 2020-10-02 05:17 | NUR ---
PT HAD SOME C/O RIGHT CHEST PAIN WHERE CHEST TUBE SITE IS. PT WAS GIVEN PAIN MEDICATION TO HELP WITH HIS PAIN. PT RESTED/SLEPT WELL. NO ISSUES OR CONCERNS NOTED. CALL LIGHT WITHIN REACH, AND BED ALARM ON.
[2020-10-02 07:00] VITALS: BP 114/63; PULSE 79; TEMP 98.2
[2020-10-02 07:57] LABS: HEMOGLOBIN 11.1 g/dl (13.5-18.0); MEAN CELL VOLUME 94 fl (80.0-100.0); MEAN CORPUSCULAR HEMOGLOBIN 30 pg (27.0-31.0); MEAN CORPUSCULAR HGB CONC 32 g/dl (33.0-37.0); MEAN PLATELET VOLUME 8.6 fl (7.4-10.4); PLATELET COUNT 572 K/mm3 (130-400); RED BLOOD COUNT 3.69 M/mm3 (4.20-5.60); REDCELL DISTRIBUTION WIDTH-CV 13.2 % (11.5-14.5)
--- NOTE | 2020-10-02 08:00 | NUR ---
Patient in bed, alert and oriented x 3. Assessment complete. Chest tube to right chest with serosanguinous drainage present, chest tube to suction. SCDs to BLE. No further needs at this time.
[2020-10-02 08:02] LABS: ALBUMIN 2.9 gm/dL (3.5-5.0); BILIRUBIN,TOTAL 0.6 mg/dL (0.0-1.0); CALCIUM 8.5 mg/dL (8.4-10.2); CREATININE, serum 0.76 (0.66-1.25); POTASSIUM 3.8 mmol/L (3.4-5.0); TOTAL PROTEIN 5.7 gm/dL (6.4-8.2)
[2020-10-02 08:03] LABS: HEMATOCRIT 34.8 % (42.0-52.0)
[2020-10-02 08:23] LABS: BAND 4 % (0-10); EOSINOPHIL 3 % (0-4); HYPOCHROMIA 2+; LYMPHOCYTE 19 % (20.0-51.0); NEUTROPHILS 65 % (42.0-75.2); PLATELET ESTIMATE INCREASED (NORMAL)
--- NOTE | 2020-10-02 09:45 | NUR ---
Patient complains of pain to chest tube site 04/07, medications given per orders.
[2020-10-02 12:21] VITALS: BP 119/52; PULSE 82; TEMP 98.2
--- NOTE | 2020-10-02 13:25 | NUR ---
Patient working with
[2020-10-02 16:21] VITALS: BP 131/57; PULSE 87; TEMP 97.8
--- NOTE | 2020-10-02 18:46 | NUR ---
Patient has done well throughout the day. Pain medications given through the day for pain to chest tube site. Dr. Greenberg in this afternoon to remove anterior site, remaning site to suction with minimal serosanguinous drainage present. PICC line to LUCY. SCDs to BLE. Denies further needs at this time. Will report off to shift superintendent caustic cresylate.
[2020-10-02 19:56] VITALS: BP 136/67; PULSE 86; TEMP 98.3
--- NOTE | 2020-10-02 23:13 | NUR ---
Patient resting in bed. Alert and Oriented. Oxycodone given earlier for pain to chest tube site. Patient reports it has helped. Chest tube to suction. Site clean, dry, and intact. Patient using urinal to void. Antibitoics infusing to PICC in his right upper arm. Patient denies any other needs at this time.
[2020-10-03 00:16] VITALS: BP 129/68; PULSE 81; TEMP 99.1
--- NOTE | 2020-10-03 03:04 | NUR ---
Patient called with complaints of constipation. Patient given a stool softener and prune juice. He said he would call if he felt the urge to have a bowel movement.
--- NOTE | 2020-10-03 03:26 | NUR ---
Patient continent of stool. Changed gown and socks. He cleaned himself off with wipes. Now back in bed trying to sleep.
[2020-10-03 04:40] VITALS: BP 145/71; PULSE 81; TEMP 98.2
[2020-10-03 07:11] LABS: CALCIUM 8.8 mg/dL (8.4-10.2); CREATININE, serum 0.68 (0.66-1.25); POTASSIUM 4.4 mmol/L (3.4-5.0)
[2020-10-03 07:30] VITALS: BP 129/65; PULSE 78; TEMP 98
--- NOTE | 2020-10-03 07:50 | NUR ---
Patient sitting up in bed, alert and oriented x 3. Assessment complete. Right chest tube with occlusive dressing is CDI, draining minimal serosanguinous fluid. Previous port site to right chest is CDI. SCDS to BLE. Denies further needs at this time. PICC line to LUCY, antibiotics infusing per orders.
[2020-10-03 08:01] LABS: HEMOGLOBIN 12.4 g/dl (13.5-18.0); MEAN CORPUSCULAR HEMOGLOBIN 31 pg (27.0-31.0); MEAN CORPUSCULAR HGB CONC 35 g/dl (33.0-37.0); MEAN PLATELET VOLUME 8.7 fl (7.4-10.4); PLATELET COUNT 506 K/mm3 (130-400); RED BLOOD COUNT 4.03 M/mm3 (4.20-5.60); REDCELL DISTRIBUTION WIDTH-CV 13.1 % (11.5-14.5)
[2020-10-03 08:05] LABS: HEMATOCRIT 35.8 % (42.0-52.0); MEAN CELL VOLUME 89 fl (80.0-100.0)
[2020-10-03 08:59] LABS: BAND 1 % (0-10); EOSINOPHIL 6 % (0-4); LYMPHOCYTE 12 % (20.0-51.0); NEUTROPHILS 73 % (42.0-75.2); NUCLEATED RED BLOOD CELL 1 (0-6)
[2020-10-03 09:00] LABS: PLATELET ESTIMATE INCREASED (NORMAL)
--- NOTE | 2020-10-03 09:30 | NUR ---
Dr. Greenberg in to remove remaining chest tube. Denies needs at this time.
[2020-10-03 12:15] VITALS: BP 130/68; PULSE 88; TEMP 98.2
--- NOTE | 2020-10-03 13:33 | NUR ---
Patient is in bed sitting up. States he has constant pain in lower back and 7.5/10 on the pain scale. Notified MARKIE Marrufo. Pain reassessed. Patient states it is better. Tolerates food and fluids well. Ambulating well with stand by assist. Fall precautions. Call light, phone, and glasses within reach. Bed in lowest position.
--- NOTE | 2020-10-03 14:54 | NUR ---
Financial Counseling completed a Medicaid application with the patient. SW met with the patient and presented the Release of Information Forms. The patient signed the forms and SW emailed them back to [facility] with Financial Counseling.
[2020-10-03 15:58] VITALS: BP 136/67; PULSE 99; TEMP 98.9
--- NOTE | 2020-10-03 16:01 | NUR ---
Erendira from [facility] states it sounds like they will likely be able to accept on Tuesday. LOS faxed updates Adelso, CORRY Watkins, and Peter. CORRY Watkins and Peter still reviewing.
--- NOTE | 2020-10-03 16:16 | NUR ---
Medicaid application was completed.
--- NOTE | 2020-10-03 18:58 | NUR ---
Patient has done well throughout the day. Pain meds given per orders. SCDs maintained to BLE. Patient has been up to restroom with SBA and walker, steady gait. Previous chest tube sites with dressing intact. Denies needs at this time. Will report off to police shift commander.
[2020-10-03 19:50] VITALS: BP 121/63; PULSE 85; TEMP 99.1
--- NOTE | 2020-10-03 22:36 | NUR ---
Patient resting in bed wanting to get some sleep. Pain pill given for pain to his chest tube site. Site is clean, dry, and intact. Patient is anxious about his medical bills. No other needs at this time. Call light in reach.
[2020-10-04] VITALS (8 sets, daily range): BP systolic 113–142; BP diastolic 50–86; PULSE 66–97; TEMP 97.8–98.6
--- NOTE | 2020-10-04 06:21 | NUR ---
Patient had pain throughout the night. Given oxycodone per orders. No other complaints. Will report off to day shift.
[2020-10-04 06:40] LABS: HEMOGLOBIN 11.6 g/dl (13.5-18.0); MEAN CORPUSCULAR HEMOGLOBIN 31 pg (27.0-31.0); MEAN CORPUSCULAR HGB CONC 33 g/dl (33.0-37.0); MEAN PLATELET VOLUME 8.7 fl (7.4-10.4); PLATELET COUNT 536 K/mm3 (130-400); RED BLOOD COUNT 3.77 M/mm3 (4.20-5.60); REDCELL DISTRIBUTION WIDTH-CV 13.2 % (11.5-14.5)
[2020-10-04 06:47] LABS: HEMATOCRIT 35.4 % (42.0-52.0); MEAN CELL VOLUME 94 fl (80.0-100.0)
[2020-10-04 06:53] LABS: ALBUMIN 3.3 gm/dL (3.5-5.0); BILIRUBIN,TOTAL 0.6 mg/dL (0.0-1.0); CALCIUM 9.1 mg/dL (8.4-10.2); CREATININE, serum 0.72 (0.66-1.25); POTASSIUM 4.1 mmol/L (3.4-5.0); TOTAL PROTEIN 6.4 gm/dL (6.4-8.2)
[2020-10-04 07:08] LABS: BAND 2 % (0-10); EOSINOPHIL 1 % (0-4); LYMPHOCYTE 17 % (20.0-51.0); NEUTROPHILS 63 % (42.0-75.2); PLATELET ESTIMATE INCREASED (NORMAL)
--- NOTE | 2020-10-04 08:19 | NUR ---
Patient sitting up in bed. Alert and oriented x 3. States pain to chest tube site 04/07, medications were given per orders. Patient upset this morning over diet and states he is tired of being in the hospital. Denies further needs at this time.
--- NOTE | 2020-10-04 10:00 | NUR ---
Patient requested Colace, patient states he typically takes stool softner at home daily. Medication given per orders. Denies furhter needs at this time.
--- NOTE | 2020-10-04 11:24 | NUR ---
SW spoke with RN. Patient had chest tube removed 09/02. Patient will not discharge until Tuesday 09/05. Social work will continue to follow
--- NOTE | 2020-10-04 12:20 | NUR ---
Bed bath provided to patient, linens changed at this time. Patient states pain 8/10 to chest tube sites with coughing and movement, medications given at this time.
--- NOTE | 2020-10-04 18:17 | NUR ---
Patient doing well throughout the day, continues to complain of pain to right chest tube sites with coughing. Medications given throughout the day for pain. Patient ambulated with staff this afternoon with steady gait and walker. SCDs maintained throughout the day to BLE. Patient denies needs at this time. Will report off to patient observation assistant.
--- NOTE | 2020-10-04 20:43 | NUR ---
MEDICATED WITH HS MEDS INCLUDING OXYCODONE 5MG, FLEXERIL 10MG AND ATIVAN 1MG PO FOR ANXIETY. WEARING OXYGEN AT 1L/NC. RT PICC FLUSHED, GOOD BLOOD RETURN FROM RED LUMEN. IS ALERT AND ORIENTED X4. DRSG TO RIGHT CHEST D/I.
[2020-10-05] VITALS (7 sets, daily range): BP systolic 106–1066; BP diastolic 59–81; PULSE 71–93; TEMP 97.4–98.9
--- NOTE | 2020-10-05 03:05 | NUR ---
Pt medicated with Oxycodone 5mg po for rt chest pain, especially with coughing. Remains on 1L/NC of oxygen.
--- NOTE | 2020-10-05 19:45 | NUR ---
Report received, assumed care for bingo manager. Assessment complete. VS stable. A&Ox3. Denies nausea. Short of air with coughing/activity. Rating pain to right chest/groin 8/10-described as constant throbbing. Oxycodone given per dr order. Also given PRN dose of cough syrup due to increased coughing at this time. Dressing to right side-old chest tube site-CDI. Plan of care discussed for this shift to include HS meds/pain meds/antibiotics/calling for questions/concerns. Verbalizes understanding/denies current needs. Call light in reach. Will monitor.
--- NOTE | 2020-10-06 02:20 | NUR ---
Called with c/o pain to right chest/groin-rating pain 8/10 on pain scale-described as constant throbbing. Oxycodone given per dr calhoun. Also states that cough has returned-PRN cough syrup given as well. Denies any other questions/concerns. Call light in reach. Will monitor.
[2020-10-06 03:04] VITALS: BP 127/71; PULSE 79; TEMP 98.7
--- NOTE | 2020-10-06 05:38 | NUR ---
Rested well later in the shift after receiving oxycodone and cough syrup. Voiding without difficulty. +BM this shift. Short of breath with activity. Tolerating diet. PICC to right upper arm flushes well-good blood return. SCDs bilat. Denies current needs. Call light in reach. Will monitor.
[2020-10-06 06:09] LABS: BASO # 0.1 (0.0-0.2); BASO % 0.9 % (0.0-2.0); EOS # 0.3 (0.0-0.7); EOS % 2.3 % (0-4.0); GRAN # 8.4 (1.4-6.5); GRAN % 70.9 % (42.2-75.2); LYMPH # 1.5 (1.2-3.4); LYMPH % 12.5 % (20.0-51.0); MEAN CELL VOLUME 93 fl (80.0-100.0); MEAN CORPUSCULAR HEMOGLOBIN 31 pg (27.0-31.0); MEAN CORPUSCULAR HGB CONC 34 g/dl (33.0-37.0); MEAN PLATELET VOLUME 8.7 fl (7.4-10.4); MONO # 1.4 (0.1-0.6); RED BLOOD COUNT 3.85 M/mm3 (4.20-5.60); REDCELL DISTRIBUTION WIDTH-CV 13.1 % (11.5-14.5)
[2020-10-06 06:22] LABS: HEMATOCRIT 35.7 % (42.0-52.0); PLATELET COUNT 651 K/mm3 (130-400)
[2020-10-06 06:31] LABS: ALBUMIN 3.5 gm/dL (3.5-5.0); BILIRUBIN,TOTAL 0.7 mg/dL (0.0-1.0); CALCIUM 9.3 mg/dL (8.4-10.2); CREATININE, serum 0.81 (0.66-1.25); POTASSIUM 4.8 mmol/L (3.4-5.0); TOTAL PROTEIN 6.8 gm/dL (6.4-8.2)
[2020-10-06 08:00] VITALS: BP 129/69; PULSE 100; TEMP 97.9
[2020-10-06] MEDS ORDERED: NICODERM C21 MG/PATC TD (08:58)
[2020-10-06] MEDS ORDERED: FOLIC ACID 11 MG/TA1 PO (08:59)
[2020-10-06] MEDS ORDERED: DUO-KAPS1 CAP PO (08:59)
[2020-10-06] MEDS ORDERED: BLUE-EMU LIDOC1 EACH TP (08:59)
[2020-10-06] MEDS ORDERED: THIAMINE 1100 MG/TAB PO (08:59)
[2020-10-06] MEDS ORDERED: CLEOCIN HCL300 MG PO (09:01)
[2020-10-06] MEDS ORDERED: ROCEPHIN 2GM VIAL21 IV (09:02)
[2020-10-06] MEDS ORDERED: IPRATROPIUM BROM3 M1 IH (09:02)
[2020-10-06] MEDS ORDERED: ROBITUSSIN DM 105 ML PO (09:06)
[2020-10-06] MEDS ORDERED: ROXICODONE 55 MG/TAB PO (09:07)
--- NOTE | 2020-10-06 09:19 | NUR ---
Patient sitting up in chair. He did well with breakfast. Prn oxicodone for pain. Right chest continue to be source of pain. Picc Rue, let AIV know he with discharge with Picc line. Hospitalist rounded, plans for discharge today.
[2020-10-06] MEDS ORDERED: ROCEPHIN VIA1 G/VIAL IV (10:07)
[2020-10-06 11:38] VITALS: BP 133/65; PULSE 84; TEMP 98.8
[2020-10-06 12:15] VITALS: BP 133/65; PULSE 84; TEMP 98.8
--- NOTE | 2020-10-06 12:58 | NUR ---
Patient ready for discharge. Report called to nurse, all questions answered. Patient tolerated lunch. Oxicodone for pain. Spoke to Dr.Saville leigh prior chest tube site. May be open to air. Follow up appt scheduled. Patient send with picc line paperwork. Patient wheeled out with all belongings.
[2020-10-08] MEDS ORDERED: ROCEPHIN 2GM VIAL21 IV ×2 (15:50→16:13)
[2020-10-08] MEDS ORDERED: ROCEPHIN VIA1 G/VIAL IV (15:50)
--- NOTE | 2020-10-08 16:06 | NUR ---
Patient presents in the lobby and states he needs to obtain his second dose of IV antibiotic. Patient left [facility] AMA earlier this date. refractory worker arranged for patient to obtain his second dose of an antibiotic today and his daily IV antibiotics in [place] [facility] today and daily until completed. Patient states he wishes to finish his IV antibiotics through the [facility] and will drive in daily. Worker requested that [facility] collaborate with patient's primary care provider, Deandra, in the [facility] to obtain the rest of his oral medications.
== END 2020-10-06 13:02 | DRG 853 ==
LOC: COL.ER 01:55 → MEDICAL 08:09 → SURG 17:29 → MEDICAL 17:29 → ICU 09-26 00:38 → SURG 09-28 15:40
PROVIDERS: Emergency Medicine; Internal Medicine; Physician Assistant; Student in an Organized Health Care Education/Training Program; Surgery; ADMIT Hospitalist
PROC: 0W9930Z Drainage of Right Pleural Cavity with Drainage Device, Percutaneous Approach (ICD-10-PCS; 2020-09-26)
PROC: 0BNK4ZZ Release Right Lung, Percutaneous Endoscopic Approach (ICD-10-PCS; principal; 2020-10-01 11:00)
DX: A41.9 Sepsis, unspecified organism (principal); J18.9 Pneumonia, unspecified organism; J96.01 Acute respiratory failure with hypoxia; G92 Toxic encephalopathy; J90 Pleural effusion, not elsewhere classified; E87.3 Alkalosis; F10.939 Alcohol use, unspecified with withdrawal, unspecified; J43.9 Emphysema, unspecified; Z66 Do not resuscitate; D47.3 Essential (hemorrhagic) thrombocythemia; E87.6 Hypokalemia; R10.9 Unspecified abdominal pain; T40.605A Adverse effect of unspecified narcotics, initial encounter; R33.9 Retention of urine, unspecified; R00.0 Tachycardia, unspecified; F12.90 Cannabis use, unspecified, uncomplicated; I25.10 Atherosclerotic heart disease of native coronary artery without angina pectoris; Z20.822 Contact with and (suspected) exposure to COVID-19; M54.9 Dorsalgia, unspecified; G89.29 Other chronic pain; Z86.73 Personal history of transient ischemic attack (TIA), and cerebral infarction without residual deficits; F31.9 Bipolar disorder, unspecified; F43.10 Post-traumatic stress disorder, unspecified; K21.9 Gastro-esophageal reflux disease without esophagitis; E78.5 Hyperlipidemia, unspecified; F17.210 Nicotine dependence, cigarettes, uncomplicated; Z88.0 Allergy status to penicillin; Z88.6 Allergy status to analgesic agent
CPT/HCPCS: 99223-AI; 99232-AI; 99233-AI; 99239; A7041; A7048; C1729; C1751; J0690; J0692; J1100; J1170; J1200; J1630; J1650; J1956; J2060; J2270; J2360; J2370; J2405; J2704; J2930; J3010; J3370; J3480; J7030; J7050; J7120; Q9967

== ENCOUNTER 2020-10-11 08:02 | Outpatient (RCR) | payer MEDICARE, BC ==
[2020-10-08 16:57] VITALS: BP 116/79; PULSE 94; TEMP 98.3
--- NOTE | 2020-10-09 08:30 | NUR ---
Patient left AMA from [facility]. He is now in [facility] for IV antibiotics. PICC intact right upper arm with sterile dressing change done with insertion site cleansed with chloraprep x 1, chlorhexidine impregnated disk applied, skin prep, stat lock, and tegaderm applied. red port flushed with 10ml normal saline with good blood return noted. unable to flush purple port. patient has an appointment with ID this am. Primary care nurse will obtain an order for cath-anuradha and instill in am. patient reported nursing staff at [facility] attempted to remove PICC. patient refused. no other signs or symptoms of IV complications noted. no other concerns voiced. to return in am for IV antibiotics. voiced understanding of instructions.
[2020-10-09 08:45] VITALS: BP 110/70; PULSE 94; TEMP 98.5
[2020-10-10 08:13] VITALS: BP 101/62; PULSE 90; TEMP 98
--- NOTE | 2020-10-10 09:30 | NUR ---
After 30 min dwell time, red lumen of PICC line gives brisk blood return and flushes easily. 4ml of blood wasted per protocol prior to flushing with 20ml of NS. Purple lumen remains difficult to flush, but able to instil remaining amount of cathflow into lumen at this time, previously full amount could not be instilled due to difficulty flushing line. Dwell time in purple lumen will will increase to an additional 90 mins per protocol. Pt expresses understanding.
--- NOTE | 2020-10-10 11:05 | NUR ---
Purple lumen now gives brisk blood return. 5ml of blood wasted. Line flushes with 20ml of NS. Pt is assisted out by wheelchair to waiting room.
[~2020-10-11] VITALS: Ht 170.2 cm; Wt 67.4 kg
[~2020-10-11 08:02] MED LIST changes: +BLUE-EMU LIDOC1 EACH TP; +DOXYCYCLINE 10100 MG PO; +DUO-KAPS1 CAP PO; +NICODERM C21 MG/PATC TD; +ROBITUSSIN DM 105 ML PO; +ROCEPHIN 2GM VIAL21 IV; +ROCEPHIN VIA1 G/VIAL IV; +THIAMINE 1100 MG/TAB PO; +VOLTAREN GEL 1%1 TU TP
[2020-10-13 08:53] VITALS: BP 108/87; PULSE 104; TEMP 98.5
[2020-10-13 09:00] LABS: ALBUMIN 3.9 gm/dL (3.5-5.0); BILIRUBIN,TOTAL 0.5 mg/dL (0.0-1.0); CALCIUM 9.6 mg/dL (8.4-10.2); CREATININE, serum 0.79 (0.66-1.25); TOTAL PROTEIN 7.3 gm/dL (6.4-8.2)
[2020-10-14 08:21] VITALS: BP 109/68; PULSE 93; TEMP 98.2
[2020-10-15 08:30] VITALS: BP 145/79; PULSE 88; TEMP 98.2
[2020-10-16 08:01] VITALS: BP 117/73; PULSE 91; TEMP 98.2
[2020-10-17 08:45] VITALS: BP 113/74; PULSE 78; TEMP 98.1
[2020-10-18 07:54] VITALS: BP 122/74; PULSE 91; TEMP 98.5
[2020-10-19 07:59] VITALS: BP 121/74; PULSE 86; TEMP 98.2
[2020-10-20 08:01] VITALS: BP 126/75; PULSE 84; TEMP 98.4
[2020-10-20 08:17] LABS: BASO # 0.1 (0.0-0.2); BASO % 1.2 % (0.0-2.0); EOS # 0.3 (0.0-0.7); EOS % 3.8 % (0-4.0); GRAN # 5.2 (1.4-6.5); GRAN % 61.8 % (42.2-75.2); HEMATOCRIT 41.1 % (42.0-52.0); HEMOGLOBIN 13.5 g/dl (13.5-18.0); LYMPH # 1.7 (1.2-3.4); LYMPH % 20.7 % (20.0-51.0); MEAN CELL VOLUME 91 fl (80.0-100.0); MEAN CORPUSCULAR HEMOGLOBIN 30 pg (27.0-31.0); MEAN CORPUSCULAR HGB CONC 33 g/dl (33.0-37.0); MEAN PLATELET VOLUME 8.7 fl (7.4-10.4); MONO % 12.3 % (1.7-9.3); PLATELET COUNT 393 K/mm3 (130-400); REDCELL DISTRIBUTION WIDTH-CV 13.2 % (11.5-14.5)
[2020-10-20 08:31] LABS: ALBUMIN 3.9 gm/dL (3.5-5.0); BILIRUBIN,TOTAL 0.3 mg/dL (0.0-1.0); CALCIUM 9.3 mg/dL (8.4-10.2); CREATININE, serum 0.68 (0.66-1.25); POTASSIUM 3.9 mmol/L (3.4-5.0); TOTAL PROTEIN 7.1 gm/dL (6.4-8.2)
[2020-10-20 09:16] LABS: ERYTHROCYTE SEDIMENTATION RATE 18 mm/hr (0-30)
[2020-10-21 08:00] VITALS: BP 118/76; PULSE 90; TEMP 98
[2020-10-22 08:00] VITALS: BP 123/76; PULSE 97; TEMP 98.4
[2020-10-23 08:05] VITALS: BP 108/69; PULSE 89; TEMP 98.7
[2020-10-24 07:51] VITALS: BP 131/81; PULSE 90; TEMP 98.2
[2020-10-26 09:05] VITALS: BP 154/76; PULSE 67; TEMP 97.7
[2020-10-27 08:09] LABS: BASO # 0.1 (0.0-0.2); BASO % 1.2 % (0.0-2.0); EOS # 0.4 (0.0-0.7); EOS % 5.7 % (0-4.0); GRAN # 3.9 (1.4-6.5); GRAN % 57.9 % (42.2-75.2); HEMATOCRIT 44.2 % (42.0-52.0); HEMOGLOBIN 14.6 g/dl (13.5-18.0); LYMPH # 1.5 (1.2-3.4); LYMPH % 22.3 % (20.0-51.0); MEAN CELL VOLUME 92 fl (80.0-100.0); MEAN CORPUSCULAR HEMOGLOBIN 30 pg (27.0-31.0); MEAN CORPUSCULAR HGB CONC 33 g/dl (33.0-37.0); MEAN PLATELET VOLUME 8.8 fl (7.4-10.4); MONO # 0.8 (0.1-0.6); MONO % 12.7 % (1.7-9.3); PLATELET COUNT 309 K/mm3 (130-400); RED BLOOD COUNT 4.83 M/mm3 (4.20-5.60)
[2020-10-27 08:24] LABS: ALANINE AMINOTRANSFERASE 33 U/L (4-49); ALBUMIN 4.2 gm/dL (3.5-5.0); ALKALINE PHOSPHATASE 92 U/L (50-136); ANION GAP 9 mmol/L (7-16); AST,SGOT 31 U/L (15-37); BILIRUBIN,TOTAL 0.6 mg/dL (0.0-1.0); BLOOD UREA NITROGEN 22 mg/dL (9-20); CALCIUM 9.4 mg/dL (8.4-10.2); CARBON DIOXIDE 27 mmol/L (22-30); CHLORIDE 104 mmol/L (98-107); CREATININE, serum 0.72 (0.66-1.25); GLUCOSE 117 mg/dL (74-106); POTASSIUM 3.9 mmol/L (3.4-5.0); SODIUM 140 mmol/L (137-145); TOTAL PROTEIN 7.1 gm/dL (6.4-8.2)
[2020-10-27 08:26] LABS: C-REACTIVE PROTEIN < 0.5 mg/dL (0.0-0.9)
[2020-10-27 08:41] VITALS: BP 116/76; PULSE 81; TEMP 97.9
[2020-10-27 09:37] LABS: ERYTHROCYTE SEDIMENTATION RATE 5 mm/hr (0-30)
[2020-10-28 08:11] VITALS: BP 121/74; PULSE 90; TEMP 98.2
[2020-10-29 08:01] VITALS: BP 108/68; PULSE 64; TEMP 98
[2020-10-30 10:17] VITALS: BP 109/67; PULSE 77; TEMP 98.7
--- NOTE | 2020-10-30 10:44 | NUR ---
Patient assisted out via wheelchair at this time.
== END 2020-10-30 10:44 | disposition home or self-care (01) ==
LOC: EUO 10-12 07:44
PROVIDERS: Internal Medicine Infectious Disease; Specialist
DX: B99.9 Unspecified infectious disease (principal); J18.9 Pneumonia, unspecified organism; J86.9 Pyothorax without fistula; Z95.9 Presence of cardiac and vascular implant and graft, unspecified; Z79.2 Long term (current) use of antibiotics
CPT/HCPCS: J0696; J2997

== ENCOUNTER 2020-11-06 13:13 | Emergency (ER) | payer OTHER ==
[~2020-11-06] VITALS: Ht 170.2 cm; Wt 63.6 kg
[2020-11-06 13:24] VITALS: TEMP 97.6
[2020-11-06] MEDS ORDERED: BROVANA15 MCG/2 M IH (13:49)
[2020-11-06 14:02] LABS: BASO # 0.1 (0.0-0.2); BASO % 1.1 % (0.0-2.0); EOS # 0.3 (0.0-0.7); EOS % 4.1 % (0-4.0); GRAN % 54.8 % (42.2-75.2); HEMATOCRIT 43.2 % (42.0-52.0); HEMOGLOBIN 14.2 g/dl (13.5-18.0); LYMPH % 27.6 % (20.0-51.0); MEAN CELL VOLUME 91 fl (80.0-100.0); MEAN CORPUSCULAR HEMOGLOBIN 30 pg (27.0-31.0); MEAN CORPUSCULAR HGB CONC 33 g/dl (33.0-37.0); MEAN PLATELET VOLUME 8.7 fl (7.4-10.4); MONO # 0.9 (0.1-0.6); MONO % 11.9 % (1.7-9.3); PLATELET COUNT 297 K/mm3 (130-400); RED BLOOD COUNT 4.77 M/mm3 (4.20-5.60); REDCELL DISTRIBUTION WIDTH-CV 13.6 % (11.5-14.5)
[2020-11-06 14:15] LABS: ALANINE AMINOTRANSFERASE 25 U/L (4-49); ALBUMIN 4.3 gm/dL (3.5-5.0); ALKALINE PHOSPHATASE 74 U/L (50-136); ANION GAP 7 mmol/L (7-16); AST,SGOT 28 U/L (15-37); BILIRUBIN,TOTAL 0.4 mg/dL (0.0-1.0); BLOOD UREA NITROGEN 21 mg/dL (9-20); CALCIUM 9.5 mg/dL (8.4-10.2); CARBON DIOXIDE 26 mmol/L (22-30); CHLORIDE 105 mmol/L (98-107); CREATININE, serum 0.72 (0.66-1.25); GLUCOSE 100 mg/dL (74-106); POTASSIUM 4.2 mmol/L (3.4-5.0); SODIUM 139 mmol/L (137-145); TOTAL PROTEIN 7.1 gm/dL (6.4-8.2)
[2020-11-06 14:23] LABS: C-REACTIVE PROTEIN < 0.5 mg/dL (0.0-0.9)
[2020-11-06 14:41] LABS: COLLECTION METHOD CLEAN CATCH
[2020-11-06 14:47] LABS: PH 5 (5-8); SQUAMOUS EPITHELIAL None Seen /hpf; URINE APPEARANCE Clear; URINE BACTERIA None Seen /hpf; URINE BILIRUBIN Negative (NEGATIVE); URINE BLOOD Negative (NEGATIVE); URINE COLOR Yellow; URINE GLUCOSE Negative (NEGATIVE); URINE KETONE Negative (NEGATIVE); URINE LEUKOCYTE ESTERASE Negative (NEGATIVE); URINE NITRATE Negative (NEGATIVE); URINE PROTEIN(semi-quant) Negative (NEGATIVE); URINE RBC None Seen /hpf; URINE UROBILINOGEN Negative (NEGATIVE)
[2020-11-06] MEDS ORDERED: OMNICEF 300MG300 MG PO (15:42)
[2020-11-06 16:02] VITALS: BP 137/88; PULSE 61
== END 2020-11-06 16:13 | disposition home or self-care (01) ==
LOC: COL.ER 13:13
PROVIDERS: Family Medicine
DX: M54.5 Low back pain (principal); R61 Generalized hyperhidrosis; J32.9 Chronic sinusitis, unspecified; J44.9 Chronic obstructive pulmonary disease, unspecified; K21.9 Gastro-esophageal reflux disease without esophagitis; E78.5 Hyperlipidemia, unspecified; I25.10 Atherosclerotic heart disease of native coronary artery without angina pectoris; Z86.73 Personal history of transient ischemic attack (TIA), and cerebral infarction without residual deficits; Z88.6 Allergy status to analgesic agent; Z88.0 Allergy status to penicillin; Z88.8 Allergy status to other drugs, medicaments and biological substances; Z87.891 Personal history of nicotine dependence; Z79.02 Long term (current) use of antithrombotics/antiplatelets
CPT/HCPCS: J2060; J7120

== ENCOUNTER 2020-11-13 10:46 | Outpatient (RCR) | payer OTHER ==
[~2020-11-13 10:46] MED LIST changes: +BROVANA15 MCG/2 M IH; +OMNICEF 300MG300 MG PO
== END 2021-02-10 | disposition home or self-care (01) ==
LOC: WSST
DX: R13.12 Dysphagia, oropharyngeal phase (principal)

== ENCOUNTER → 2021-01-12 | Outpatient (CLI) | payer MEDICARE, BC ==
[~2021-01-12] MED LIST changes: +CLEOCIN HC150 MG/CAP PO; +COLACE 100100 MG/CAP PO; +PRILOTC PO; +SENNA-LAX8.6 MG PO
== END ==
LOC: COL.RAD 13:17
DX: N28.1 Cyst of kidney, acquired (principal)

== ENCOUNTER → 2021-01-14 | Outpatient (CLI) | payer MEDICARE, BC | LOC: COL.RAD 10:00 | DX: J98.11 Atelectasis (principal); L90.5 Scar conditions and fibrosis of skin; R61 Generalized hyperhidrosis; R53.81 Other malaise; N32.9 Bladder disorder, unspecified | CPT/HCPCS: Q9967 ==

== ENCOUNTER 2021-02-16 00:15 | Emergency (ER) | payer MEDICARE, BC ==
[~2021-02-16] VITALS: Ht 170.2 cm; Wt 72.7 kg
[~2021-02-16 00:15] MED LIST changes: -CLEOCIN HC150 MG/CAP PO; -COLACE 100100 MG/CAP PO; -PRILOTC PO; -SENNA-LAX8.6 MG PO
[2021-02-16 00:22] VITALS: TEMP 97.3
[2021-02-16 00:48] LABS: BASO # 0.1 (0.0-0.2); BASO % 0.5 % (0.0-2.0); EOS # 0.3 (0.0-0.7); EOS % 2.6 % (0-4.0); GRAN # 6.1 (1.4-6.5); GRAN % 60.9 % (42.2-75.2); HEMATOCRIT 47.1 % (42.0-52.0); HEMOGLOBIN 16.2 g/dl (13.5-18.0); LYMPH # 2.5 (1.2-3.4); LYMPH % 25.2 % (20.0-51.0); MEAN CELL VOLUME 87 fl (80.0-100.0); MEAN CORPUSCULAR HEMOGLOBIN 30 pg (27.0-31.0); MEAN CORPUSCULAR HGB CONC 34 g/dl (33.0-37.0); MEAN PLATELET VOLUME 9.1 fl (7.4-10.4); MONO % 10.3 % (1.7-9.3); PLATELET COUNT 292 K/mm3 (130-400); RED BLOOD COUNT 5.43 M/mm3 (4.20-5.60)
[2021-02-16 01:00] LABS: INR 0.9 (0.8-3.0); PROTHROMBIN TIME 9.7 SECONDS (9.7-12.8)
[2021-02-16 01:02] LABS: ALANINE AMINOTRANSFERASE 24 U/L (4-49); ALBUMIN 4.1 gm/dL (3.5-5.0); ALKALINE PHOSPHATASE 59 U/L (50-136); ANION GAP 9 mmol/L (7-16); AST,SGOT 36 U/L (15-37); BILIRUBIN,TOTAL 0.3 mg/dL (0.0-1.0); BLOOD UREA NITROGEN 13 mg/dL (9-20); CALCIUM 9.3 mg/dL (8.4-10.2); CARBON DIOXIDE 25 mmol/L (22-30); CHLORIDE 109 mmol/L (98-107); GLUCOSE 134 mg/dL (74-106); POTASSIUM 3.1 mmol/L (3.4-5.0); SODIUM 143 mmol/L (137-145); TOTAL PROTEIN 6.9 gm/dL (6.4-8.2)
[2021-02-16 01:03] LABS: PARTIAL THROMBOPLASTIN TIME 28.5 SECONDS (26.0-37.0)
[2021-02-16 01:07] LABS: CREATINE KINASE 60 U/L (55-170); LIPASE 137 U/L (23-300)
[2021-02-16 01:18] LABS: TROPONIN-I < 0.012 ng/mL (0.000-0.035)
[2021-02-16 01:41] LABS: COLLECTION METHOD CLEAN CATCH
[2021-02-16 01:47] LABS: PH 6 (5-8); SQUAMOUS EPITHELIAL None Seen /hpf; URINE APPEARANCE Clear; URINE BACTERIA None Seen /hpf; URINE BILIRUBIN Negative (NEGATIVE); URINE BLOOD Negative (NEGATIVE); URINE COLOR Colorless; URINE GLUCOSE Negative (NEGATIVE); URINE KETONE Negative (NEGATIVE); URINE LEUKOCYTE ESTERASE Negative (NEGATIVE); URINE NITRATE Negative (NEGATIVE); URINE PROTEIN(semi-quant) Negative (NEGATIVE); URINE RBC 0-2 /hpf; URINE UROBILINOGEN Negative (NEGATIVE); URINE WBC 0-2 /hpf
[2021-02-16] MEDS ORDERED: COLACE 100100 MG/CAP PO (06:16)
[2021-02-16] MEDS ORDERED: SENNA-LAX8.6 MG PO (06:16)
[2021-02-16 06:29] VITALS: BP 135/93; PULSE 53
== END 2021-02-16 06:37 | disposition home or self-care (01) ==
LOC: COL.ER 00:15
PROVIDERS: Emergency Medicine
DX: K59.00 Constipation, unspecified (principal); R07.89 Other chest pain; Z98.890 Other specified postprocedural states
CPT/HCPCS: J2270; J2405; J7030

== ENCOUNTER 2021-04-13 06:46 | Day surgery (SDC) | payer MEDICARE, BC ==
[~2021-04-13] VITALS: Ht 170.2 cm; Wt 70.5 kg
[~2021-04-13 06:46] MED LIST changes: +COLACE 100100 MG/CAP PO; +SENNA-LAX8.6 MG PO
[2021-04-13] MEDS ORDERED: CLEOCIN HC150 MG/CAP PO (07:19)
[2021-04-13] MEDS ORDERED: BRILINTA90 MG PO (07:20)
[2021-04-13] MEDS ORDERED: PRILOTC PO (07:20)
[2021-04-13 07:21] VITALS: BP 134/74; PULSE 59; TEMP 97.6
[2021-04-13] MEDS ORDERED: ROXICODONE 55 MG/TAB PO (07:21)
[2021-04-13] MEDS ORDERED: ZETIA 10MG TAB10 MG PO (07:21)
[2021-04-13 07:39] LABS: BASO # 0.1 (0.0-0.2); BASO % 0.6 % (0.0-2.0); EOS # 0.7 (0.0-0.7); EOS % 5.9 % (0-4.0); GRAN # 6.6 (1.4-6.5); GRAN % 58.8 % (42.2-75.2); HEMATOCRIT 51.8 % (42.0-52.0); HEMOGLOBIN 17.4 g/dl (13.5-18.0); LYMPH # 2.4 (1.2-3.4); LYMPH % 21.8 % (20.0-51.0); MEAN CELL VOLUME 91 fl (80.0-100.0); MEAN CORPUSCULAR HEMOGLOBIN 31 pg (27.0-31.0); MEAN CORPUSCULAR HGB CONC 34 g/dl (33.0-37.0); MEAN PLATELET VOLUME 8.9 fl (7.4-10.4); MONO # 1.4 (0.1-0.6); MONO % 12.5 % (1.7-9.3); PLATELET COUNT 297 K/mm3 (130-400); RED BLOOD COUNT 5.71 M/mm3 (4.20-5.60); REDCELL DISTRIBUTION WIDTH-CV 12.9 % (11.5-14.5)
[2021-04-13 09:40] VITALS: BP 110/67; PULSE 54; TEMP 97.2
--- NOTE | 2021-04-13 09:40 | NUR ---
Patient arrives to [facility] via cart, accompanied by TRIPE SCRAPER Jocelyne. He is alert and oriented. He is lying in bed for his 10 minutes of supine time. PIV to TKO. He denies pain or nausea. He has a clean/dry/intact bandaid over his operative site. Lights are dimmed for comfort. VSS on room air.
[2021-04-13 10:00] VITALS: BP 111/70; PULSE 54
--- NOTE | 2021-04-13 10:00 | NUR ---
Patient is resting comfortably. He denies pain/nausea. Bandaid remains clean/dry/intact. He is sitting up after his supine time. He is eating/drinking a muffin and juice.
[2021-04-13 10:15] VITALS: BP 132/78; PULSE 55
--- NOTE | 2021-04-13 11:30 | NUR ---
1030 Patient has met discharge criteria. PIV is removed with catheter intact and hemostasis achieved. Discharge instructions are discussed. He denies any questions and verbalizes understanding. He changes to his clothing independently. His ride home is contacted and is unable to pick him up to go home until 1130. 1130 Patient is escorted to the exit via wheelchair. He places a request with medical records for previous records with the patient entrance desk. His ride arrives and he is discharged to home with ride in private vehicle at 1130.
== END 2021-04-13 11:30 | disposition home or self-care (01) ==
LOC: SDCO 06:46
PROVIDERS: Pathology Anatomic Pathology & Clinical Pathology
DX: D75.1 Secondary polycythemia (principal); R61 Generalized hyperhidrosis; I25.10 Atherosclerotic heart disease of native coronary artery without angina pectoris; I10 Essential (primary) hypertension; I25.2 Old myocardial infarction; E78.5 Hyperlipidemia, unspecified; J44.9 Chronic obstructive pulmonary disease, unspecified; M19.90 Unspecified osteoarthritis, unspecified site; G89.29 Other chronic pain; M54.9 Dorsalgia, unspecified; K21.9 Gastro-esophageal reflux disease without esophagitis; F43.10 Post-traumatic stress disorder, unspecified; F31.9 Bipolar disorder, unspecified; F17.210 Nicotine dependence, cigarettes, uncomplicated; Z79.899 Other long term (current) drug therapy; Z20.822 Contact with and (suspected) exposure to COVID-19; Z86.73 Personal history of transient ischemic attack (TIA), and cerebral infarction without residual deficits
CPT/HCPCS: J2250; J2704; J7120

== ENCOUNTER → 2021-06-12 | Outpatient (CLI) | payer MEDICARE, BC ==
[~2021-06-12] MED LIST changes: +CLEOCIN HC150 MG/CAP PO; +PRILOTC PO
== END ==
LOC: COL.RAD 07:55
DX: S43.401A Unspecified sprain of right shoulder joint, initial encounter (principal)

== ENCOUNTER 2021-08-03 19:10 | Emergency (ER) | payer MEDICARE, BC ==
[~2021-08-03] VITALS: Ht 170.2 cm; Wt 86.4 kg
[2021-08-03 19:19] VITALS: TEMP 98
[2021-08-03 21:02] LABS: BASO # 0.1 K/mm3 (0.0-0.2); BASO % 0.8 % (0.0-2.0); EOS # 0.7 K/mm3 (0.0-0.7); EOS % 6.8 % (0-4.0); GRAN # 6.3 K/mm3 (1.4-6.5); GRAN % 58.3 % (42.2-75.2); HEMATOCRIT 46.2 % (42.0-52.0); HEMOGLOBIN 15.5 g/dl (13.5-18.0); LYMPH # 2.2 K/mm3 (1.2-3.4); LYMPH % 20.6 % (20.0-51.0); MEAN CELL VOLUME 91 fl (80.0-100.0); MEAN CORPUSCULAR HEMOGLOBIN 31 pg (27.0-31.0); MEAN CORPUSCULAR HGB CONC 34 g/dl (33.0-37.0); MEAN PLATELET VOLUME 9.3 fl (7.4-10.4); MONO # 1.4 K/mm3 (0.1-0.6); MONO % 12.9 % (1.7-9.3); PLATELET COUNT 347 K/mm3 (130-400); RED BLOOD COUNT 5.08 M/mm3 (4.20-5.60); REDCELL DISTRIBUTION WIDTH-CV 12.7 % (11.5-14.5)
[2021-08-03 21:14] LABS: BILIRUBIN,TOTAL 0.3 mg/dL (0.2-1.2); CALCIUM 9.3 mg/dL (8.4-10.2); CREATININE, serum 0.85 mg/dL (0.72-1.25); TOTAL PROTEIN 6.8 gm/dL (6.2-8.1)
[2021-08-03 23:57] VITALS: BP 140/78; PULSE 76
== END 2021-08-03 23:57 | disposition home or self-care (01) ==
LOC: COL.ER 19:10
PROVIDERS: Family Medicine
DX: T18.128A Food in esophagus causing other injury, initial encounter (principal); J44.9 Chronic obstructive pulmonary disease, unspecified; K21.9 Gastro-esophageal reflux disease without esophagitis; F17.210 Nicotine dependence, cigarettes, uncomplicated; X58.XXXA Exposure to other specified factors, initial encounter
CPT/HCPCS: J7120

== ENCOUNTER 2022-09-23 12:17 | Emergency (ER) | payer MEDICARE, BC ==
[~2022-09-23] VITALS: Ht 170.2 cm; Wt 63.6 kg
[2022-09-23] MEDS ORDERED: MEDROL 4MG DOSPA4 MG PO (14:16)
[2022-09-23] MEDS ORDERED: ROBAXIN 50500 MG/TAB PO (14:16)
[2022-09-23 15:11] VITALS: BP 154/72; PULSE 81
== END 2022-09-23 15:11 | disposition home or self-care (01) ==
LOC: COL.ER 12:17
DX: M54.50 Low back pain, unspecified (principal); G89.29 Other chronic pain; F17.200 Nicotine dependence, unspecified, uncomplicated; Z88.5 Allergy status to narcotic agent
CPT/HCPCS: J1790; J2360

== ENCOUNTER 2022-11-12 10:29 | Emergency (ER) | payer MEDICARE, BC ==
[~2022-11-12] VITALS: Ht 170.2 cm; Wt 64.5 kg
[~2022-11-12 10:29] MED LIST changes: +CEFTIN 250250 MG/TAB PO; +MEDROL 4MG DOSPA4 MG PO; +ROBAXIN 50500 MG/TAB PO
[2022-11-12 10:44] VITALS: TEMP 97.7
[2022-11-12 12:08] LABS: BASO # 0.1 K/mm3 (0.0-0.2); BASO % 0.6 % (0.0-2.0); EOS # 0.7 K/mm3 (0.0-0.7); EOS % 5.4 % (0.0-4.0); GRAN # 8.6 K/mm3 (1.4-6.5); GRAN % 67.9 % (42.2-75.2); HEMATOCRIT 45.5 % (42.0-52.0); LYMPH # 2.1 K/mm3 (1.2-3.4); LYMPH % 16.5 % (20.0-51.0); MEAN CELL VOLUME 90 fl (80.0-100.0); MEAN CORPUSCULAR HEMOGLOBIN 32 pg (27-31); MEAN CORPUSCULAR HGB CONC 35 g/dl (33.0-37.0); MONO # 1.2 K/mm3 (0.1-0.6); MONO % 9.4 % (1.7-9.3); PLATELET COUNT 304 K/mm3 (130-400); RED BLOOD COUNT 5.08 M/mm3 (4.20-5.60)
[2022-11-12 12:25] LABS: ALBUMIN 3.7 gm/dL (3.4-4.8); BILIRUBIN,TOTAL 0.2 mg/dL (0.2-1.2); C-REACTIVE PROTEIN 0.37 mg/dL (0.00-0.50); CALCIUM 9.7 mg/dL (8.4-10.2); CREATININE, serum 0.86 mg/dL (0.72-1.25); POTASSIUM 4.7 mmol/L (3.5-4.5); TOTAL PROTEIN 6.9 gm/dL (6.2-8.1)
[2022-11-12 12:32] LABS: ERYTHROCYTE SEDIMENTATION RATE 7 mm/hr (0-30)
[2022-11-12 13:57] VITALS: BP 132/80; PULSE 81
== END 2022-11-12 13:59 | disposition home or self-care (01) ==
LOC: COL.ER 10:29
PROVIDERS: Emergency Medicine
DX: M17.11 Unilateral primary osteoarthritis, right knee (principal); Z28.310 Unvaccinated for COVID-19

== ENCOUNTER 2023-01-05 11:41 | Emergency (ER) | payer MEDICARE, BC ==
[~2023-01-05] VITALS: Ht 170.2 cm; Wt 81.4 kg
[2023-01-05 11:42] VITALS: TEMP 97.6
[2023-01-05 12:05] LABS: BASO # 0.1 K/mm3 (0.0-0.2); BASO % 0.8 % (0.0-2.0); EOS # 0.4 K/mm3 (0.0-0.7); EOS % 4.7 % (0.0-4.0); GRAN # 4.8 K/mm3 (1.4-6.5); GRAN % 65.2 % (42.2-75.2); HEMATOCRIT 46.3 % (42.0-52.0); HEMOGLOBIN 16.3 g/dl (13.5-18.0); LYMPH # 1.4 K/mm3 (1.2-3.4); LYMPH % 18.7 % (20.0-51.0); MEAN CELL VOLUME 88 fl (80.0-100.0); MEAN CORPUSCULAR HEMOGLOBIN 31 pg (27-31); MEAN CORPUSCULAR HGB CONC 35 g/dl (33.0-37.0); MEAN PLATELET VOLUME 8.7 fl (7.4-10.4); MONO # 0.8 K/mm3 (0.1-0.6); MONO % 10.3 % (1.7-9.3); PLATELET COUNT 321 K/mm3 (130-400); RED BLOOD COUNT 5.27 M/mm3 (4.20-5.60); REDCELL DISTRIBUTION WIDTH-CV 12.9 % (11.5-14.5)
[2023-01-05 12:21] LABS: ALANINE AMINOTRANSFERASE 16 U/L (0-55); ALKALINE PHOSPHATASE 81 U/L (40-150); ANION GAP 10 mmol/L (7-16); AST,SGOT 19 U/L (5-34); BILIRUBIN,TOTAL 0.7 mg/dL (0.2-1.2); BLOOD UREA NITROGEN 18 mg/dL (8-26); CARBON DIOXIDE 23 mmol/L (23-31); CHLORIDE 103 mmol/L (98-107); CREATININE, serum 0.87 mg/dL (0.72-1.25); GLUCOSE 144 mg/dL (70-99); SODIUM 136 mmol/L (136-145); TOTAL PROTEIN 6.8 gm/dL (6.2-8.1)
[2023-01-05 12:36] LABS: TROPONIN-I < 0.010 ng/mL (0.00-0.033)
[2023-01-05 17:28] VITALS: BP 110/56; PULSE 76
== END 2023-01-05 17:28 | disposition home or self-care (01) ==
LOC: COL.ER 11:41
PROVIDERS: Emergency Medicine
DX: R07.89 Other chest pain (principal); F17.200 Nicotine dependence, unspecified, uncomplicated
CPT/HCPCS: J3010

== ENCOUNTER 2023-06-19 11:53 | Inpatient (IN) | payer MEDICARE, BC ==
[~2023-06-19] VITALS: Ht 172.7 cm; Wt 63.5 kg
[~2023-06-19 11:53] MED LIST changes: -PRILOTC PO
[2023-06-19 12:54] LABS: HEMATOCRIT 48.1 % (42.0-52.0); MEAN CELL VOLUME 89 fl (80.0-100.0); MEAN CORPUSCULAR HEMOGLOBIN 31 pg (27-31); MEAN CORPUSCULAR HGB CONC 35 g/dl (33.0-37.0); MEAN PLATELET VOLUME 9.1 fl (7.4-10.4); PLATELET COUNT 283 K/mm3 (130-400); REDCELL DISTRIBUTION WIDTH-CV 12.5 % (11.5-14.5)
[2023-06-19 12:56] LABS: HEMOGLOBIN 16.6 g/dl (13.5-18.0)
[2023-06-19 12:57] LABS: INR 1.3 (0.8-3.0); PROTHROMBIN TIME 13.6 SECONDS (9.7-12.8)
[2023-06-19 13:08] LABS: BAND 12 % (0-10); LYMPHOCYTE 8 % (20.0-51.0); NEUTROPHILS 70 % (42.0-75.2); PLATELET ESTIMATE NORMAL (NORMAL)
[2023-06-19 13:10] LABS: ALBUMIN 3.2 gm/dL (3.4-4.8); BILIRUBIN,TOTAL 0.5 mg/dL (0.2-1.2); CALCIUM 8.9 mg/dL (8.4-10.2); CREATININE, serum 1.28 mg/dL (0.72-1.25); POTASSIUM 4.3 mmol/L (3.5-4.5); TOTAL PROTEIN 6.7 gm/dL (6.2-8.1)
[2023-06-19] MEDS ORDERED: FLEXERIL 1010 MG/TAB PO (15:18)
--- NOTE | 2023-06-19 15:20 | NUR ---
Patient to room 355 from the ED by bed. Patient ambulated with 1 assist and cane. A&Ox4. VSS. IV CDI, fluids infusing. Reports pain in back, will notify doctor. Nurse oriented the patient to location, room and call light. Patient positioned for comfort. Warm blanket provided. Call light within reach. Bed alarm on
[2023-06-19] MEDS ORDERED: LUTEIN20 M1 PO (15:22)
[2023-06-19] MEDS ORDERED: COLACE 100100 MG/CAP PO (15:22)
[2023-06-19 15:23] VITALS: BP 129/63; PULSE 77; TEMP 97.3
[2023-06-19] MEDS ORDERED: IMDUR 30MG30 MG/TAB PO (15:23)
[2023-06-19] MEDS ORDERED: DIFLUCAN200 MG PO (15:25)
[2023-06-19] MEDS ORDERED: PRINIVIL5 MG PO (15:26)
[2023-06-19 18:56] VITALS: BP 104/85; PULSE 84; TEMP 98.6
[2023-06-19 23:03] VITALS: BP 128/78; PULSE 83; TEMP 97.9
[2023-06-20] VITALS (11 sets, daily range): BP systolic 100–152; BP diastolic 48–76; PULSE 77–87; TEMP 97.7–98.8
[2023-06-20 00:03] LABS: CLOSTRIDIUM DIFF A/B NEG
[2023-06-20 06:17] LABS: BASO % 0.3 % (0.0-2.0); GRAN # 12.6 K/mm3 (1.4-6.5); GRAN % 84.6 % (42.2-75.2); HEMATOCRIT 41.7 % (42.0-52.0); LYMPH # 0.9 K/mm3 (1.2-3.4); LYMPH % 6.1 % (20.0-51.0); MEAN CELL VOLUME 89 fl (80.0-100.0); MEAN CORPUSCULAR HEMOGLOBIN 30 pg (27-31); MEAN CORPUSCULAR HGB CONC 34 g/dl (33.0-37.0); MEAN PLATELET VOLUME 9.3 fl (7.4-10.4); MONO # 1.3 K/mm3 (0.1-0.6); MONO % 8.6 % (1.7-9.3); PLATELET COUNT 223 K/mm3 (130-400); RED BLOOD COUNT 4.67 M/mm3 (4.20-5.60); REDCELL DISTRIBUTION WIDTH-CV 12.6 % (11.5-14.5)
[2023-06-20 06:22] LABS: HEMOGLOBIN 14.2 g/dl (13.5-18.0)
[2023-06-20 06:35] LABS: ALBUMIN 2.7 gm/dL (3.4-4.8); CALCIUM 8.5 mg/dL (8.4-10.2); CREATININE, serum 0.77 mg/dL (0.72-1.25); POTASSIUM 4.4 mmol/L (3.5-4.5)
--- NOTE | 2023-06-20 07:00 | NUR ---
PT RESTING IN BED. IVF RUNNING. PT IS ON RA. PT IS SR ON TELE. PT IS AXOX3 BUT FORGETFUL. BEDALARM ACTIVE. FALL PRECAUTIONS IN PLACE. PT HAS CALL LIGHT AND INSTRUCTED TO CALL WITH ALL NEEDS.
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
[2023-06-20 12:34] LABS: COLLECTION METHOD CLEAN CATCH
[2023-06-20 13:02] LABS: PH 5.5 (5.0-8.5); URINE APPEARANCE Clear (CLEAR/HAZY); URINE COLOR Yellow (YELLOW)
[2023-06-20 13:03] LABS: MUCOUS Present (NOT PRESENT); SQUAMOUS EPITHELIAL None Seen /hpf (0-10); URINE BLOOD Negative (NEGATIVE); URINE GLUCOSE Negative (NEGATIVE); URINE KETONE Negative (NEGATIVE); URINE NITRATE Negative (NEGATIVE); URINE PROTEIN(semi-quant) 1+ (NEGATIVE); URINE RBC None Seen /hpf (0-2); URINE UROBILINOGEN 0.2 E.U/dL (0.2-1.0)
[2023-06-20 13:04] LABS: URINE BACTERIA Rare /hpf (NONE SEEN)
--- NOTE | 2023-06-20 21:37 | NUR ---
Patient awake, alert and oriented. C/O abdominal pain, PRN given as ordered. Denies shortness of breath or nausea, states he has been able to eat. Assisted to the bathroom, slightly unsteady with cane. Bed in lowest position with bed alarm on, call light within reach. Denies further needs at this time.
[2023-06-21] VITALS (11 sets, daily range): BP systolic 110–133; BP diastolic 53–63; PULSE 74–98; TEMP 97.8–98.8
[2023-06-21 06:09] LABS: BASO % 0.3 % (0.0-2.0); EOS # 0.1 K/mm3 (0.0-0.7); EOS % 0.9 % (0.0-4.0); GRAN % 82.1 % (42.2-75.2); HEMOGLOBIN 12.9 g/dl (13.5-18.0); LYMPH # 0.9 K/mm3 (1.2-3.4); LYMPH % 8.2 % (20.0-51.0); MEAN CELL VOLUME 87 fl (80.0-100.0); MEAN CORPUSCULAR HEMOGLOBIN 31 pg (27-31); MEAN CORPUSCULAR HGB CONC 35 g/dl (33.0-37.0); MEAN PLATELET VOLUME 9.2 fl (7.4-10.4); MONO # 0.9 K/mm3 (0.1-0.6); MONO % 7.9 % (1.7-9.3); PLATELET COUNT 213 K/mm3 (130-400); RED BLOOD COUNT 4.22 M/mm3 (4.20-5.60); REDCELL DISTRIBUTION WIDTH-CV 12.3 % (11.5-14.5)
[2023-06-21 06:13] LABS: HEMATOCRIT 36.8 % (42.0-52.0)
[2023-06-21 06:21] LABS: ALBUMIN 2.6 gm/dL (3.4-4.8); CALCIUM 8.1 mg/dL (8.4-10.2); CREATININE, serum 0.73 mg/dL (0.72-1.25); MAGNESIUM 1.7 mg/dL (1.6-2.6); PHOSPHOROUS 1.7 mg/dL (2.3-4.7); POTASSIUM 3.5 mmol/L (3.5-4.5)
--- NOTE | 2023-06-21 06:42 | NUR ---
Patient able to rest fairly well throughout the night, awoken a couple times due to abdominal pain. Relieved with PRN medication. Assisted to the bathroom several times throughout the night, had one small bowel movement with a small amount of bright red blood. Bed in lowest position, bed alarm on, call light within reach.
--- NOTE | 2023-06-21 07:00 | NUR ---
PT IS RESTING IN BED. PT HAS IVF RUNNING. PT IN ON RA. PT IS SR ON TELE. PT IS AXOX3 BUT FORGETFUL. PT HAS CALL LIGHT WITHIN REACH AND INSTRUCTED TO CALL WITH ALL NEEDS. BEDALARM ACTIVE. FALL PRECAUTIONS IN PLACE.
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
--- NOTE | 2023-06-21 23:57 | NUR ---
pt lying in bed with nausea and vomiting, YANNI Liriano notified about vomiting, zofran ordered and given. pt alert and oriented x4. pt denies chest pain and shortness of breath, pt reports feeling generalized aching pain from a fall at home that is consistent around a 6 or 7/10. pt report still some slight discomfort in the stomach but states "much better", bowl prep continued. pt up to bathroom multiple times throughout the night with stand by assist and use of can, steady gait. pt noted to have small scarring and scabs on bilateral lower and upper extremities as well as a small patch on abd. no open scabs noted at this time. IV in RAC is patent and site is clean dry and intact. pt has no further needs, questions, or concerns at this time. call light within reach, will continue to monitor.
[2023-06-22] VITALS (16 sets, daily range): BP systolic 100–193; BP diastolic 55–100; PULSE 57–77; TEMP 97.6–98.6
[2023-06-22 06:02] LABS: BASO % 0.5 % (0.0-2.0); EOS # 0.1 K/mm3 (0.0-0.7); EOS % 0.9 % (0.0-4.0); GRAN # 6.8 K/mm3 (1.4-6.5); GRAN % 76.6 % (42.2-75.2); HEMOGLOBIN 12.8 g/dl (13.5-18.0); MEAN CELL VOLUME 87 fl (80.0-100.0); MEAN CORPUSCULAR HEMOGLOBIN 31 pg (27-31); MEAN CORPUSCULAR HGB CONC 35 g/dl (33.0-37.0); MEAN PLATELET VOLUME 9.2 fl (7.4-10.4); MONO % 10.8 % (1.7-9.3); PLATELET COUNT 233 K/mm3 (130-400); REDCELL DISTRIBUTION WIDTH-CV 12.1 % (11.5-14.5)
[2023-06-22 06:14] LABS: HEMATOCRIT 36.4 % (42.0-52.0)
[2023-06-22 06:20] LABS: ALBUMIN 2.6 gm/dL (3.4-4.8); CALCIUM 8.2 mg/dL (8.4-10.2); CREATININE, serum 0.74 mg/dL (0.72-1.25); MAGNESIUM 1.8 mg/dL (1.6-2.6); PHOSPHOROUS 2.7 mg/dL (2.3-4.7); POTASSIUM 3.3 mmol/L (3.5-4.5)
--- NOTE | 2023-06-22 08:00 | NUR ---
Patient sleeping in bed, easily awakened with verbal command. A&Ox4. VSS. IV CDI, fluids infusing. Denies pain and discomfort. Patient NPO for a procedure. No further needs expressed. Call light within reach. Bed alarm on
--- NOTE | 2023-06-22 10:37 | NUR ---
Initial visit; Patient thanked Senior Java Programmer for looking in on him and offering God's blessings. Patient anxious to learn why he is falling and what is going on with his health. Naresh is having tests to discern why he is experiencing several different symptoms.
--- NOTE | 2023-06-22 16:00 | NUR ---
Product Introduction Manager met with Patient to conduct Medicare IM Brief. Patient acknowledges brief and signs form. Original placed in chart, Bernadineaaron declined copy. Patient is anticipated to discharge home today or tomorrow.
--- NOTE | 2023-06-22 22:58 | NUR ---
patient lying in bed, alert and oriented x4. pt chest pain and shortness of breath. scattered scarring and scabbing noted on pt's extremities and a small patch of the abd. IV in the LF is patent and site is clean dry and intact. pt up to bathroom with stand by assist and use of cane with a steady gait. pt reported generalized throbbing pain in the back rated as 9/10, pre request and orders, roxicodone given. on reassessment, pain rated as 5/10. pt has no further needs, questions, or concerns at this time. call light within reach, will continue to monitor.
[2023-06-23 00:14] VITALS: BP_SYST 117
[2023-06-23 03:58] VITALS: BP 118/60; PULSE 60; TEMP 98
[2023-06-23 04:17] VITALS: BP_SYST 118
[2023-06-23 05:37] LABS: BASO % 0.2 % (0.0-2.0); EOS # 0.2 K/mm3 (0.0-0.7); EOS % 2.7 % (0.0-4.0); GRAN # 5.5 K/mm3 (1.4-6.5); GRAN % 67.3 % (42.2-75.2); HEMOGLOBIN 12.6 g/dl (13.5-18.0); LYMPH # 1.4 K/mm3 (1.2-3.4); LYMPH % 17.4 % (20.0-51.0); MEAN CELL VOLUME 87 fl (80.0-100.0); MEAN CORPUSCULAR HEMOGLOBIN 30 pg (27-31); MEAN CORPUSCULAR HGB CONC 34 g/dl (33.0-37.0); MEAN PLATELET VOLUME 8.9 fl (7.4-10.4); MONO % 11.9 % (1.7-9.3); PLATELET COUNT 281 K/mm3 (130-400); REDCELL DISTRIBUTION WIDTH-CV 11.9 % (11.5-14.5)
[2023-06-23 05:41] LABS: HEMATOCRIT 36.6 % (42.0-52.0)
[2023-06-23 06:01] LABS: ALBUMIN 2.6 gm/dL (3.4-4.8); CALCIUM 8.6 mg/dL (8.4-10.2); CREATININE, serum 0.81 mg/dL (0.72-1.25); MAGNESIUM 1.8 mg/dL (1.6-2.6); PHOSPHOROUS 2.5 mg/dL (2.3-4.7); POTASSIUM 4.2 mmol/L (3.5-4.5)
[2023-06-23 07:49] VITALS: BP 119/61; PULSE 61; TEMP 98.2
[2023-06-23 09:37] VITALS: BP_SYST 119
--- NOTE | 2023-06-23 11:29 | NUR ---
ALL DISCHARGE INSTRUCTIONS REVIEWED WITH PT, ALL QUESTIONS AND CONCERNS ANSWERED AT THAT TIME. IV SITE TO FOREARM WAS DISCONTINUED, CATHETER TIP INTACT. PT ESCORTED OUT BY NURSE AT 1120, ALL PERSONAL BELONGINGS TAKEN WITH THE PT.
== END 2023-06-23 11:20 | disposition home or self-care (01) | DRG 872 ==
LOC: COL.ER 11:53 → MEDICAL 14:33
PROVIDERS: Physician Assistant; ADMIT Internal Medicine
PROC: 0DBG8ZX Excision of Left Large Intestine, Via Natural or Artificial Opening Endoscopic, Diagnostic (ICD-10-PCS; principal; 2023-06-19)
DX: A41.9 Sepsis, unspecified organism (principal); K55.9 Vascular disorder of intestine, unspecified; D62 Acute posthemorrhagic anemia; N17.9 Acute kidney failure, unspecified; K63.5 Polyp of colon; T14.8XXA Other injury of unspecified body region, initial encounter; J44.9 Chronic obstructive pulmonary disease, unspecified; R33.9 Retention of urine, unspecified; K21.9 Gastro-esophageal reflux disease without esophagitis; E78.5 Hyperlipidemia, unspecified; I25.10 Atherosclerotic heart disease of native coronary artery without angina pectoris; Z86.73 Personal history of transient ischemic attack (TIA), and cerebral infarction without residual deficits; I65.29 Occlusion and stenosis of unspecified carotid artery; M54.9 Dorsalgia, unspecified; F31.9 Bipolar disorder, unspecified; Z72.0 Tobacco use
CPT/HCPCS: G0378; J0692; J1790; J1836; J2270; J2405; J2704; J3010; J3480; J7030; J7050; Q9967

== ENCOUNTER → 2023-07-29 | Outpatient (CLI) | payer MEDICARE, BC, MEDICAID ==
[~2023-07-29] MED LIST changes: +AMITRIPTYLINE H50 M1 PO; +CARAFATE 1GM1 G PO; +DIFLUCAN200 MG PO; +IMDUR 30MG30 MG/TAB PO; +NITROSTAT0.4 MG/TAB SL; +PRINIVIL5 MG PO; +PROAIR HFA0.09 MG/AC IH; +PROTONIX 40MG T40 MG PO; +TOPROL XL 25MG25 MG PO
== END ==
LOC: COL.RAD 09:20
DX: R10.31 Right lower quadrant pain (principal)

== ENCOUNTER 2023-09-30 09:10 | Day surgery (SDC) | payer MEDICARE, BC, MEDICAID ==
[~2023-09-30] VITALS: Ht 170.2 cm; Wt 66.3 kg
[~2023-09-30 09:10] MED LIST changes: +LR 1,000 ML IV SCH; +Ondansetron 4 MG/2 ML VIAL IV PRN
[2023-09-30 09:42] VITALS: BP 127/83; PULSE 76; TEMP 97.9
--- NOTE | 2023-09-30 10:00 | NUR ---
The patient ambulated back to [facility] 4 independently using a steady gait and appeared to tolerate the activity well. Vital signs obtained. Consent signed. 20G IV started in right wrist with one stick, LR infusing without difficulty. Assessment completed. Home medications reconcilled. Warm blanket provided. Call light is within reach. Denies any further needs at this time.
[2023-09-30 10:45] VITALS: BP 87/58; PULSE 74; TEMP 97.3
[2023-09-30 11:00] VITALS: BP 99/54; PULSE 73
[2023-09-30 11:02] VITALS: BP 87/58; PULSE 76
--- NOTE | 2023-09-30 11:20 | NUR ---
1045- PATIENT RETURNS TO [facility] VIA CART. PT AWAKE AND ALERT. RESPIRATIONS UNLABORED. AMBULATED TO RECLINER CHAIR WITH 2:1 SBA. PT DENIES NAUSEA OR ABDOMINAL PAIN. HOOKED UP TO MONITOR AND VS OBTAINED. CALL LIGHT AT SIDE AND "HIS RIDE" WAS PRESENT. 1054- PATIENT TOLERATING APPLE JUICE AND MUFFIN WITHOUT NAUSEA OR DIFFICULTY SWALLOWING. 1104- D/C INSTRUCTIONS REVIEWED WITH PATIENT. PT VERBALIZED UNDERSTANDING AND A COPY OF INSTRUCTIONS PROVIDED IN D/C FOLDER. 1108- PATIENT DRESSES SELF. 1109- DR. HENRIQUEZ IN ROOM SPEAKING WITH PATIENT. 1120- PATIENT DISCHARGED FROM UNIT VIA W/C TO A PERSONAL VEHICLE. PT LEFT HOSPITAL IN STABLE CONDITION.
== END 2023-09-30 11:20 | disposition home or self-care (01) ==
LOC: SDCO 09:10
DX: K22.5 Diverticulum of esophagus, acquired (principal); K29.60 Other gastritis without bleeding; K21.00 Gastro-esophageal reflux disease with esophagitis, without bleeding; K22.10 Ulcer of esophagus without bleeding; K22.89 Other specified disease of esophagus; K31.89 Other diseases of stomach and duodenum; F17.210 Nicotine dependence, cigarettes, uncomplicated; Z79.899 Other long term (current) drug therapy
CPT/HCPCS: J2704; J7120